=== PATIENT | female | born 1975 | race African-American/Black ===

== ENCOUNTER 2017-05-18 09:35 | Inpatient (IN) | payer BC ==
[2017-05-18] MEDS ORDERED: Acetaminophen 325 MG TAB PO PRN (10:04)
[2017-05-18] MEDS: Acetaminophen 325 MG TAB PO PRN ×2 (10:36→15:39)
[2017-05-18] MEDS ORDERED: Oseltamivir 75 MG CAP PO SCH (10:45)
[2017-05-18] MEDS: Dextrose 5 %-0.45 % NaCl 1,000 ML IV SCH ×2 (11:40→20:45)
--- NOTE | 2017-05-18 11:55 | HP ---
This is CA Diggs-Ryan, dictating for Dr. Jose L Chavarria. REASON FOR ADMISSION: Flu versus pneumonia and hypertension. HISTORY OF PRESENT ILLNESS: This is a pleasant female with a history of hypertension, who was seen i n our clinic where she had a 24-hour history of fever as high as 102, headache and a nonproductive co ugh. She was seen in the office where appeared acutely ill; therefore, she was admitted to the [facility] for further evaluation and treatment. The patient denies any chest, arm or back pain. She also denies any syncopal or near syncopal episodes. She denies having the flu vaccine. PAST MEDICAL HISTORY: 1. Hypertension. 2. Gout. 3. Back pain. 4. She was followed by Dr. Swartz in the past where she had a cardiac catheterization, which was u nremarkable showing no evidence of coronary artery disease. 5. History of arthritis. 6. She does have a family history of coronary artery disease. ALLERGIES: None. MEDICATIONS: 1. Coreg 25 mg b.i.d. 2. Losartan 100 mg every day. 3. Remeron 30 mg at bedtime. 4. Allopurinol 100 mg every day. 5. Norvasc 5 mg every day. FAMILY HISTORY: Noncontributory. SOCIAL HISTORY: She does not drink alcohol. She does smoke. REVIEW OF SYSTEMS: General: Admits to weakness, fatigue, fever, and chills. HEENT: No diplopia, a maurosis fugax, tinnitus, sore throat or hoarseness. Cardiovascular: No chest, arm or back pain. P ulmonary: She does have a cough, but it is not productive in nature. Gastrointestinal: No GI bleed , constipation or diarrhea. Genitourinary: No dysuria, nocturia, oliguria or polyuria. Endocrine: No polyphagia, polydipsia or heat or cold intolerance. Musculoskeletal: Admits to arthralgias. No lupus or myopathy. Neurologic: No history of TIA or seizure. All systems are negative. PHYSICAL EXAMINATION: GENERAL: Pleasant female who appears to be acutely ill. VITAL SIGNS: Her blood pressure is 175/100, pulse 112, respirations 18 and temperature 101.7. HEENT: PERRLA. Sclerae clear, not icteric with no arcus senilis or xanthelasma. NECK: Supple with no increased JVP or carotid bruit. Carotid had good upstroke with no thyromegaly. COR: Tachy rhythm. No murmur, S3. CHEST: Decreased breath sounds. No wheezing or crackles. ABDOMEN: Soft and nontender with normoactive bowel sounds. No bruit or organomegaly. EXTREMITIES: No edema or cyanosis. She had palpable pedal pulses. SKIN: There is no evidence of ulceration, lesion or rash. NEURO: She is awake, alert and oriented to person, place and time. ASSESSMENT: 1. Fluid versus pneumonia. 2. Hypertension. 3. Dehydration. PLAN: 1. The patient will be admitted where CMP, CBC and UA will be obtained. 2. We will do a flu swab and strep swab. 3. We will check a PA and lateral chest x-ray. 4. We will begin IV fluids and give Tylenol p.r.n. for fever as well as clonidine p.r.n. 5. We will resume her blood pressure medication. 6. We will prophylactically start on Tamiflu and antibiotics until further tests. We will have resu lts of her test. The patient verbalized understanding and all questions answered to satisfaction.
[2017-05-18] MEDS: cefTRIAXone\\ROCEPHIN 1 GM, Syringe 0.4 ML in Sterile Water 9.6 ML SLOW IVP SCH (12:19)
[2017-05-18 12:28] LABS: ALT (SGPT) 24 U/L (8-55); AST (SGOT) 25 U/L (5-34); Albumin 3.8 g/dL (3.5-5.0); Alkaline Phosphatase 56 U/L (40-150); Anion Gap 15 mmol/L (10-20); BUN (Urea Nitrogen) 14 mg/dL (7.0-18.7); Bilirubin, Total 0.4 mg/dL (0.2-1.2); Calc. Creatinine Clearance 0 mL/min (70-130); Calcium 8.9 mg/dL (7.8-10.44); Carbon Dioxide 22 mmol/L (22-29); Chloride 104 mmol/L (98-107); Estimated GFR-MDRD 71; Globulin 3.4 g/dL (2.4-3.5); Glucose 133 mg/dL (70-105); Potassium 3.2 mmol/L (3.5-5.1); Protein, Total 7.2 g/dL (6.0-8.3); Sodium 138 mmol/L (136-145)
[2017-05-18 12:49] VITALS: BMI 31.6
[2017-05-18] MEDS ORDERED: Amlodipine 10 MG TAB PO SCH (13:15)
[2017-05-18 13:54] LABS: Hemoglobin 12.7 g/dL (12.0-16.0); Mean Corpuscular HGB CONC 32.5 g/dL (32.0-36.0); Mean Corpuscular Hemoglobin 30.4 pg (27.0-31.0); Mean Corpuscular Volume 93.6 fl (81.0-99.0); Mean Platelet Volume 7.5 fL (7.4-10.4); Platelet Count 224 thou/uL (130-400); RBC Distribution Width 13.3 % (11.5-14.5); Red Blood Cell (RBC) Count 4.18 mill/uL (4.20-5.40); White Blood Cell (WBC) Count 7.8 thou/uL (4.8-10.8)
[2017-05-18 14:05] LABS: Band 17 % (5-11); Lymphocytes 9 % (21-51); MDiff Complete? YES; Monocytes 1 % (0-10); Neutrophil 73 % (42-75); PLT Morphology Comment Appears Adequate; RBC Morphology Normal
--- NOTE | 2017-05-18 14:31 | RAD ---
RADIOGRAPH CHEST 2 VIEWS: Date: 05/18/17 Time: 1415 hours HISTORY: 42-year-old female with cough. COMPARISON: 09/14/11. FINDINGS: Again noted is the mild cardiomegaly. There is a new finding of mixed interstitial and alveolar infil trates, mostly alveolar, throughout the bilateral lower lobes. There is no moderate sized or large pl eural effusion. No pneumothorax. IMPRESSION: 1. Mixed interstitial and alveolar infiltrates, mostly alveolar, in the bilateral lower lobes, proba sherry representing bilateral pneumonia. This is less likely to represent pulmonary edema. 2. Recommend follow-up chest radiograph in 1 week. xin [] POS: Ryan
[2017-05-18] MEDS: cloNIDine 0.1 MG TAB PO PRN ×2 (15:39→17:21)
[2017-05-18] MEDS: Acetaminophen 500 MG TAB PO SCH ×2 (17:16→20:44)
[2017-05-18] MEDS: Ibuprofen 200 MG TAB PO SCH ×2 (17:20→23:50)
[2017-05-18 19:48] LABS: Bilirubin Negative (Negative); Blood, Urine Negative (Negative); Clarity CLOUDY (Clear); Glucose, Urine (Dipstick) Negative (Negative); Leukocyte Negative (Negative); Nitrite Negative (Negative); Protein, Urine (Dipstick) 100 mg/dL (Neg-Trace); Specific Gravity, Urine 1.023 (1.002-1.036); pH, Urine 6.5 (5.0-9.0)
[2017-05-18 19:53] LABS: Bacteria/HPF None Seen HPF (None Seen); Hyaline Casts/LPF 0-3 HYALINE CAST LPF (0-3 Hyaline); RBC/HPF 0-3 HPF (0-3); Squamous Epithelial 0-3 HPF (0-3); WBC/HPF 0-3 HPF (0-3)
[2017-05-18] MEDS: Oseltamivir 75 MG CAP PO SCH (20:43)
[2017-05-18] MEDS: Carvedilol 25 MG TAB PO SCH (20:44)
[2017-05-18] MEDS: Mirtazapine 30 MG TAB PO SCH (20:45)
[2017-05-19] MEDS: Acetaminophen 500 MG TAB PO SCH ×6 (02:14→23:11)
[2017-05-19] MEDS: Ibuprofen 200 MG TAB PO SCH ×4 (06:16→23:47)
[2017-05-19] MEDS: Dextrose 5 %-0.45 % NaCl 1,000 ML IV SCH ×2 (06:22→17:17)
[2017-05-19] MEDS: Carvedilol 25 MG TAB PO SCH ×2 (08:50→20:41)
[2017-05-19] MEDS: Oseltamivir 75 MG CAP PO SCH ×2 (08:50→20:41)
[2017-05-19] MEDS: Amlodipine 10 MG TAB PO SCH (08:50)
[2017-05-19] MEDS: cefTRIAXone\\ROCEPHIN 1 GM, Syringe 0.4 ML in Sterile Water 9.6 ML SLOW IVP SCH (11:31)
[2017-05-19 11:53] LABS: #Eosinphils 0.1 thou/uL (0.0-0.7); #Lymphocytes 0.9 thou/uL (1.20-3.40); #Monocytes 0.2 thou/uL (0.11-0.59); #Neutrophils 2.8 thou/uL (1.40-6.50); %Eosinophils 1.5 % (0.0-10.0); %Lymphocytes 23.1 % (21.0-51.0); %Monocytes 3.8 % (0.0-10.0); %Neutrophils 71.6 % (42.0-75.0); Hemoglobin 11.8 g/dL (12.0-16.0); Mean Corpuscular HGB CONC 32.8 g/dL (32.0-36.0); Mean Corpuscular Hemoglobin 31.3 pg (27.0-31.0); Mean Corpuscular Volume 95.6 fl (81.0-99.0); Mean Platelet Volume 7.5 fL (7.4-10.4); Platelet Count 188 thou/uL (130-400); RBC Distribution Width 13.2 % (11.5-14.5); Red Blood Cell (RBC) Count 3.77 mill/uL (4.20-5.40)
[2017-05-19 12:11] LABS: Anion Gap 11 mmol/L (10-20); BUN (Urea Nitrogen) 13 mg/dL (7.0-18.7); Calc. Creatinine Clearance 124 mL/min (70-130); Calcium 8.5 mg/dL (7.8-10.44); Carbon Dioxide 25 mmol/L (22-29); Chloride 106 mmol/L (98-107); Estimated GFR-MDRD Greater than 90; Glucose 146 mg/dL (70-105); Potassium 3.4 mmol/L (3.5-5.1); Sodium 139 mmol/L (136-145)
[2017-05-19] MEDS ORDERED: HYDROcodone/Acetaminophen 5/325 mg Tablet PO PRN (17:02)
[2017-05-19] MEDS: Benzonatate 100 MG CAP PO PRN ×2 (17:16→23:50)
[2017-05-19] MEDS: Mirtazapine 30 MG TAB PO SCH (20:41)
[2017-05-19] MEDS: guaiFENesin ER 600 MG TAB PO SCH (20:42)
[2017-05-19] MEDS: Cyclobenzaprine 10 MG TAB PO SCH (20:42)
[2017-05-19] MEDS: cloNIDine 0.1 MG TAB PO PRN (20:42)
[2017-05-19] MEDS: Fluticasone Propionate Nasal Spray 16 gm Bottle NASAL SCH (20:43)
[2017-05-20] MEDS: Acetaminophen 500 MG TAB PO SCH ×2 (01:56→05:53)
[2017-05-20] MEDS: Dextrose 5 %-0.45 % NaCl 1,000 ML IV SCH ×3 (01:56→22:44)
[2017-05-20 05:22] LABS: Anion Gap 12 mmol/L (10-20); BUN (Urea Nitrogen) 8 mg/dL (7.0-18.7); Calc. Creatinine Clearance 132 mL/min (70-130); Calcium 8.4 mg/dL (7.8-10.44); Carbon Dioxide 22 mmol/L (22-29); Chloride 108 mmol/L (98-107); Estimated GFR-MDRD Greater than 90; Glucose 146 mg/dL (70-105); Potassium 3.4 mmol/L (3.5-5.1); Sodium 139 mmol/L (136-145)
[2017-05-20] MEDS: Ibuprofen 200 MG TAB PO SCH (05:52)
[2017-05-20] MEDS: Benzonatate 100 MG CAP PO PRN (05:55)
[2017-05-20] MEDS ORDERED: Ibuprofen 600 MG TAB PO PRN (08:28)
[2017-05-20] MEDS: Carvedilol 25 MG TAB PO SCH ×2 (08:45→20:59)
[2017-05-20] MEDS: Cyclobenzaprine 10 MG TAB PO SCH ×2 (08:45→20:59)
[2017-05-20] MEDS: Amlodipine 10 MG TAB PO SCH (08:45)
[2017-05-20] MEDS: Oseltamivir 75 MG CAP PO SCH ×2 (08:46→21:05)
[2017-05-20] MEDS: guaiFENesin ER 600 MG TAB PO SCH ×2 (08:46→20:59)
[2017-05-20] MEDS: Fluticasone Propionate Nasal Spray 16 gm Bottle NASAL SCH ×2 (08:47→21:01)
[2017-05-20] MEDS: Acetaminophen 325 MG TAB PO PRN ×2 (10:05→17:20)
--- NOTE | 2017-05-20 10:15 | RAD ---
CHEST 2 VIEWS: Date: 05/20/17 HISTORY: Pneumonia. COMPARISON: Chest radiographs dated 05/18/17. FINDINGS: Similar appearance to the air space opacities both lower lobes. No pneumothorax. No large effusion. C ardiac silhouette is similar. Mild reverse S-shaped scoliosis of thoracic spine. IMPRESSION: Similar appearance of the air space opacities suggesting pneumonia. POS: [facility]
[2017-05-20] MEDS: cloNIDine 0.1 MG TAB PO PRN (17:20)
[2017-05-20] MEDS: Mirtazapine 30 MG TAB PO SCH (20:59)
[2017-05-21] MEDS: cloNIDine 0.1 MG TAB PO PRN ×2 (05:05→19:56)
[2017-05-21 05:40] LABS: Anion Gap 16 mmol/L (10-20); BUN (Urea Nitrogen) 5 mg/dL (7.0-18.7); Calc. Creatinine Clearance 138 mL/min (70-130); Calcium 8.8 mg/dL (7.8-10.44); Carbon Dioxide 21 mmol/L (22-29); Chloride 106 mmol/L (98-107); Estimated GFR-MDRD Greater than 90; Glucose 138 mg/dL (70-105); Potassium 3.7 mmol/L (3.5-5.1); Sodium 139 mmol/L (136-145)
[2017-05-21 06:05] LABS: Band 1 % (5-11); Hemoglobin 12.8 g/dL (12.0-16.0); Lymphocytes 55 % (21-51); MDiff Complete? YES; Mean Corpuscular HGB CONC 31.8 g/dL (32.0-36.0); Mean Corpuscular Hemoglobin 30.3 pg (27.0-31.0); Mean Corpuscular Volume 95.3 fl (81.0-99.0); Mean Platelet Volume 7.5 fL (7.4-10.4); Monocytes 5 % (0-10); Neutrophil 37 % (42-75); PLT Morphology Comment Appears Adequate; Platelet Count 251 thou/uL (130-400); RBC Distribution Width 13.3 % (11.5-14.5); RBC Morphology Normal; Reactive Lymphocytes 2 % (0-10); Red Blood Cell (RBC) Count 4.22 mill/uL (4.20-5.40); White Blood Cell (WBC) Count 4.5 thou/uL (4.8-10.8)
[2017-05-21] MEDS: Carvedilol 25 MG TAB PO SCH ×2 (08:23→20:06)
[2017-05-21] MEDS: Oseltamivir 75 MG CAP PO SCH ×2 (08:23→20:07)
[2017-05-21] MEDS: Acetaminophen 325 MG TAB PO PRN ×2 (08:23→19:56)
[2017-05-21] MEDS: Amlodipine 10 MG TAB PO SCH (08:23)
[2017-05-21] MEDS: guaiFENesin ER 600 MG TAB PO SCH ×2 (08:23→20:07)
[2017-05-21] MEDS: Cyclobenzaprine 10 MG TAB PO SCH ×2 (08:24→20:06)
[2017-05-21] MEDS: Dextrose 5 %-0.45 % NaCl 1,000 ML IV SCH ×2 (08:24→17:31)
[2017-05-21] MEDS: Fluticasone Propionate Nasal Spray 16 gm Bottle NASAL SCH ×2 (08:27→20:07)
[2017-05-21] MEDS: Benzonatate 100 MG CAP PO PRN (18:30)
[2017-05-21] MEDS: Mirtazapine 30 MG TAB PO SCH (20:07)
[2017-05-22] MEDS: Dextrose 5 %-0.45 % NaCl 1,000 ML IV SCH (02:25)
[2017-05-22] MEDS: Benzonatate 100 MG CAP PO PRN (05:27)
[2017-05-22 05:50] LABS: #Eosinphils 0.1 thou/uL (0.0-0.7); #Lymphocytes 2.6 thou/uL (1.20-3.40); #Monocytes 0.6 thou/uL (0.11-0.59); #Neutrophils 2.5 thou/uL (1.40-6.50); %Basophils 0.8 % (0.0-1.0); %Eosinophils 1.2 % (0.0-10.0); %Lymphocytes 44.8 % (21.0-51.0); %Monocytes 9.7 % (0.0-10.0); %Neutrophils 43.5 % (42.0-75.0); Mean Corpuscular HGB CONC 32.6 g/dL (32.0-36.0); Mean Corpuscular Hemoglobin 30.9 pg (27.0-31.0); Mean Corpuscular Volume 94.7 fl (81.0-99.0); Platelet Count 249 thou/uL (130-400); RBC Distribution Width 13.1 % (11.5-14.5); Red Blood Cell (RBC) Count 3.88 mill/uL (4.20-5.40); White Blood Cell (WBC) Count 5.8 thou/uL (4.8-10.8)
[2017-05-22 06:07] LABS: Anion Gap 11 mmol/L (10-20); BUN (Urea Nitrogen) 5 mg/dL (7.0-18.7); Calc. Creatinine Clearance 141 mL/min (70-130); Calcium 8.9 mg/dL (7.8-10.44); Carbon Dioxide 25 mmol/L (22-29); Chloride 105 mmol/L (98-107); Estimated GFR-MDRD Greater than 90; Glucose 127 mg/dL (70-105); Potassium 3.1 mmol/L (3.5-5.1); Sodium 138 mmol/L (136-145)
[2017-05-22] MEDS: guaiFENesin ER 600 MG TAB PO SCH ×2 (08:24→19:49)
[2017-05-22] MEDS: Amlodipine 10 MG TAB PO SCH (08:25)
[2017-05-22] MEDS: Carvedilol 25 MG TAB PO SCH ×2 (08:25→19:49)
[2017-05-22] MEDS: Fluticasone Propionate Nasal Spray 16 gm Bottle NASAL SCH ×2 (08:25→19:50)
[2017-05-22] MEDS: Cyclobenzaprine 10 MG TAB PO SCH ×2 (08:25→19:49)
[2017-05-22] MEDS: Oseltamivir 75 MG CAP PO SCH ×2 (08:26→19:49)
[2017-05-22] MEDS: Losartan 25 MG TAB PO SCH (10:23)
[2017-05-22] MEDS: Potassium Chloride 20 MEQ TAB PO SCH ×2 (10:23→19:49)
--- NOTE | 2017-05-22 10:37 | PQF ---
CLINICAL DOCUMENTATION IMPROVEMENT CLARIFICATION FORM: ICD-10 Updated PLEASE DO AN ADDENDUM TO THE PROGRESS NOTE WITH ANY DOCUMENTATION UPDATES OR ADDITIONS AND CARRY THROUGH TO DC SUMMARY. THANK YOU. DATE: 05/22 ATTN: DR. NEY CULP Please exercise your independent, professional judgment in responding to the clarification form. Clinical indicators are provided on the bottom of this form for your review. Please check appropriate box(s): [ ] Pneumonia secondary to (specify organism / underlying disease) [ x ] Simple Pneumonia (community acquired - nosocomial) [ ] Bronchopneumonia [ ] Pneumonia of unknown etiology [ x] Other diagnosis _Flu A [ ] Unable to determine For continuity of documentation, please document condition throughout progress notes and discharge summary. Thank You. CLINICAL INDICATORS - SIGNS / SYMPTOMS / LABS H&P DOCUMENTATION 05/18: ASSESSMENT: 1. FLU VS PNEUMONIA PHYSICIAN PN DATED 05/19: BILATERAL PNEUMONIA INFLUENZA A RISK FACTORS: CURRENT TOBACCO USE PNEUMONIA INFLUENZA A TREATMENTS: IV ANTIBIOTIC (ROCEPHIN 05/18 - ) PO ANTIBIOTIC (LEVAQUIN 05/20 - PRESENT) IVF (D5 .45 NS 05/18 - ) 02 SAT MONITORING (05/18 - PRESENT) RESPIRATORY TREATMENTS (DUONEB 05/18 - PRESENT) PO TAMIFLU (05/18 - PRESENT) THANK YOU! Mihaela (This form is maintained as a part of the permanent medical record) 2014 [employer]. All Rights Reserved Mihaela Valverde RN, BSN [email or web address] Office: [phone] [facility]
--- NOTE | 2017-05-22 11:05 | PQF ---
CLINICAL DOCUMENTATION IMPROVEMENT CLARIFICATION FORM: ICD-10 Updated PLEASE DO AN ADDENDUM TO THE PROGRESS NOTE WITH ANY DOCUMENTATION UPDATES OR ADDITIONS AND CARRY THROUGH TO DC SUMMARY. THANK YOU. DATE: 05/22 ATTN: DR. NEY CULP Please exercise your independent, professional judgment in responding to the clarification form. Clinical indicators are provided on the bottom of this form for your review Please check appropriate box(s): [ ] Sepsis due to: (Pna, UTI, gangrenous gall bladder, etc.) [ ] Localized infection without sepsis [ ] Other diagnosis [ x ] Unable to determine For continuity of documentation, please document condition throughout progress notes and discharge summary. Thank You. CLINICAL INDICATORS - SIGNS / SYMPTOMS / LABS [employer] H&P DOCUMENTATION 05/18: ...SEEN IN OUR CLINIC WHERE SHE HAD A 24-HR HISTORY OF FEVER HIGH 102, AMEZCUA & NONPRODUCTIVE COUGH PHYSICAL EXAM: GENERAL: PLEASANT FEMALE WHO APPEARS TO BE ACUTELY ILL. VITAL SIGNS: BP 175/100 NM: 112 T: 101.7 LABS: BANDS 17% (05/18, DAY OF ADMIT) NON-DIABETIC ELEVATED BLOOD GLUCOSE: 133 - 147 ADMISSION VS: T: 102.3 HR: 110 RISK FACTORS: BILATERAL PNEUMONIA INFLUENZA A CURRENT TOBACCO USE TREATMENTS: IV ANTIBIOTICS (ROCEPHIN 05/18 - ) PO ANTIBIOTIC (LEVAQUIN 05/20 - PRESENT) IVF (D5 .45 NS 05/18 - ) THANK YOU! Mihaela (This form is maintained as a part of the permanent medical record) 2014 [employer]. All Rights Reserved Mihaela Valverde RN, BSN [email or web address] Office: [phone] [facility]
[2017-05-22] MEDS: Mirtazapine 30 MG TAB PO SCH (19:49)
[2017-05-23 05:55] LABS: #Basophils 0.1 thou/uL (0.0-0.2); #Eosinphils 0.1 thou/uL (0.0-0.7); #Monocytes 0.6 thou/uL (0.11-0.59); #Neutrophils 2.8 thou/uL (1.40-6.50); %Basophils 1.1 % (0.0-1.0); %Lymphocytes 46.2 % (21.0-51.0); %Neutrophils 42.7 % (42.0-75.0); Hemoglobin 12.8 g/dL (12.0-16.0); Mean Corpuscular HGB CONC 32.8 g/dL (32.0-36.0); Mean Corpuscular Hemoglobin 30.7 pg (27.0-31.0); Mean Corpuscular Volume 93.5 fl (81.0-99.0); Mean Platelet Volume 7.4 fL (7.4-10.4); Platelet Count 285 thou/uL (130-400); Red Blood Cell (RBC) Count 4.18 mill/uL (4.20-5.40); White Blood Cell (WBC) Count 6.6 thou/uL (4.8-10.8)
[2017-05-23 06:07] LABS: ALT (SGPT) 31 U/L (8-55); AST (SGOT) 28 U/L (5-34); Albumin 3.6 g/dL (3.5-5.0); Alkaline Phosphatase 58 U/L (40-150); Anion Gap 11 mmol/L (10-20); BUN (Urea Nitrogen) 8 mg/dL (7.0-18.7); Bilirubin, Total 0.4 mg/dL (0.2-1.2); Calc. Creatinine Clearance 139 mL/min (70-130); Carbon Dioxide 27 mmol/L (22-29); Chloride 105 mmol/L (98-107); Estimated GFR-MDRD Greater than 90; Globulin 3.4 g/dL (2.4-3.5); Glucose 116 mg/dL (70-105); Potassium 3.5 mmol/L (3.5-5.1); Sodium 139 mmol/L (136-145)
--- NOTE | 2017-05-23 08:22 | RAD ---
TWO VIEWS CHEST: Date: 05-23-17 Comparison: 05-12-17 History: Flu versus pneumonia. FINDINGS: No pneumothorax or pleural fluid is seen. There is no focal consolidation or alveolar edema. There is mild linear density in the left lung base, suggesting mild infiltrate or volume loss. When compared to the 05-20-17 exam, aeration within the mid left lung zone and the right lung base has improved. IMPRESSION: Non-streaky opacity noted within the medial left lung base. Aeration within right base and mid left l daniel zone have improved. POS: H
[2017-05-23] MEDS: Losartan 25 MG TAB PO SCH (08:44)
[2017-05-23] MEDS: Cyclobenzaprine 10 MG TAB PO SCH ×2 (08:44→20:04)
[2017-05-23] MEDS: guaiFENesin ER 600 MG TAB PO SCH ×2 (08:44→20:04)
[2017-05-23] MEDS: Potassium Chloride 20 MEQ TAB PO SCH ×2 (08:44→20:04)
[2017-05-23] MEDS: Oseltamivir 75 MG CAP PO SCH ×2 (08:45→20:04)
[2017-05-23] MEDS: Amlodipine 10 MG TAB PO SCH (08:45)
[2017-05-23] MEDS: Carvedilol 25 MG TAB PO SCH ×2 (08:45→20:04)
[2017-05-23] MEDS: Fluticasone Propionate Nasal Spray 16 gm Bottle NASAL SCH ×2 (08:45→20:04)
[2017-05-23] MEDS: Mirtazapine 30 MG TAB PO SCH (20:04)
[2017-05-24 05:11] LABS: #Basophils 0.1 thou/uL (0.0-0.2); #Eosinphils 0.1 thou/uL (0.0-0.7); #Lymphocytes 3.2 thou/uL (1.20-3.40); #Monocytes 0.7 thou/uL (0.11-0.59); #Neutrophils 3.6 thou/uL (1.40-6.50); %Basophils 0.7 % (0.0-1.0); %Eosinophils 1.6 % (0.0-10.0); %Monocytes 8.8 % (0.0-10.0); %Neutrophils 46.9 % (42.0-75.0); Hemoglobin 12.4 g/dL (12.0-16.0); Mean Corpuscular HGB CONC 32.7 g/dL (32.0-36.0); Mean Corpuscular Hemoglobin 30.8 pg (27.0-31.0); Mean Corpuscular Volume 94.2 fl (81.0-99.0); Mean Platelet Volume 7.2 fL (7.4-10.4); Platelet Count 351 thou/uL (130-400); Red Blood Cell (RBC) Count 4.03 mill/uL (4.20-5.40); White Blood Cell (WBC) Count 7.6 thou/uL (4.8-10.8)
[2017-05-24 05:34] LABS: Anion Gap 14 mmol/L (10-20); BUN (Urea Nitrogen) 10 mg/dL (7.0-18.7); Calc. Creatinine Clearance 138 mL/min (70-130); Calcium 9.3 mg/dL (7.8-10.44); Carbon Dioxide 24 mmol/L (22-29); Chloride 104 mmol/L (98-107); Estimated GFR-MDRD Greater than 90; Glucose 126 mg/dL (70-105); Potassium 3.8 mmol/L (3.5-5.1); Sodium 138 mmol/L (136-145)
[2017-05-24] MEDS: Losartan 25 MG TAB PO SCH (07:52)
[2017-05-24] MEDS: Amlodipine 10 MG TAB PO SCH (07:53)
[2017-05-24] MEDS: guaiFENesin ER 600 MG TAB PO SCH (07:53)
[2017-05-24] MEDS: Carvedilol 25 MG TAB PO SCH (07:54)
[2017-05-24] MEDS: Potassium Chloride 20 MEQ TAB PO SCH (07:54)
[2017-05-24] MEDS: Fluticasone Propionate Nasal Spray 16 gm Bottle NASAL SCH (07:55)
[2017-05-24] MEDS: Cyclobenzaprine 10 MG TAB PO SCH (07:58)
[2017-05-24 07:59] VITALS: BP 157/93
[2017-05-24 08:19] VITALS: TEMP 98
--- NOTE | 2017-05-24 11:34 | DIS ---
This is CA Diggs-Ryan, dictating for Jose L Chavarria M.D. FINAL DIAGNOSES: 1. Flu. 2. Pneumonia. 3. Hypertension. 4. Hypokalemia. COMPLICATIONS: None. PROCEDURES: None. CONSULTANTS: None. HOSPITAL COURSE: This is a pleasant female, who was seen in our office with tachycardia, increasing short of breath and elevated temperature. She was admitted to the hospital, where she was found to h ave influenza and also pneumonia. She was started appropriately on Tamiflu, IV fluids, antibiotics a nd also given antipyretic therapy. Her home medication was resumed. Her white blood cell count was normal on admission, on dismissal was stable at 7.6. Her hemoglobin and hematocrit was normal. Her potassium was 3.4, after replenishing it was 3.8. Her BUN and creatinine were normal. Her blood sug ar slightly elevated at 140. Her last chest x-ray showed aeration within the right base and mid left lung zone have improved. The patient began breathing much better. Her antibiotics were changed to by mouth. Her vital signs were stable. She was ready to go home and she was discharged home on 04/2017 in stable condition. DIET: Regular diet. ACTIVITIES: As tolerated by patient. DISCHARGE MEDICATIONS: Included: 1. Cozaar 50 mg every day. 2. Levaquin 500 mg every day. 3. Mucinex 1200 mg b.i.d. 4. Norvasc 10 mg every day. 5. Coreg 25 mg b.i.d. 6. Remeron 30 mg at bedtime. 7. Promethazine with codeine 5 mL b.i.d. p.r.n. FOLLOWUP: She was advised to follow up with Bety in 1 week or prior to that if she has any compl ications. Total time spent with this patient after reviewing the chart and assessing the patient and dictating the discharge summary was 30 minutes.
== END 2017-05-24 10:04 | disposition home or self-care (01) | DRG 195 ==
LOC: 2SW 09:35 → OBSVTOIN 09:35 → T4-B 05-20 11:02
PROVIDERS: ADMIT Specialist; ATTEND Specialist
DX: J10.00 Influenza due to other identified influenza virus with unspecified type of pneumonia (principal); E86.0 Dehydration; E87.6 Hypokalemia; I10 Essential (primary) hypertension
CPT/HCPCS: 36415; 36416; 71046; 80048; 80053; 81001; 85007; 85025; 85027; 87081; 87430; 94640; A4216; J0696; J7620

== ENCOUNTER 2017-10-15 09:53 | Outpatient (CLI) | payer BC | END 2017-10-15 09:54 | disposition home or self-care (01) | LOC: BICRAD 09:53 | PROVIDERS: ATTEND Specialist | DX: M54.9 Dorsalgia, unspecified (principal); M47.896 Other spondylosis, lumbar region | CPT/HCPCS: 72100 ==

== ENCOUNTER 2017-12-26 10:12 | Emergency (ER) | payer BC ==
--- NOTE | 2017-12-26 11:07 | RAD ---
CHEST PA AND LATERAL: History: 42-year-old female with history of cough, sore throat, and chills. Comparison: 05-23-17 FINDINGS: Two views of the chest demonstrate minimal increased linear and interstitial markings in the infrahil ar regions, particularly on the left side. This is stable from the 05-23-17 study. It may well represe nt some chronic change. No confluent pneumonia, overt edema, or pleural effusion. IMPRESSION: Increased vertically oriented linear and parenchymal changes in the left infrahilar region and left r etrocardiac region showing little change from prior study. Correlate clinically. If there is clinical concern for acute pneumonia, consider short term follow up study in several weeks to document cleari ng or stability. POS: [facility]
[2017-12-26] MEDS ORDERED: Ibuprofen 800 MG TAB ONE (12:34)
== END 2017-12-26 12:46 | disposition home or self-care (01) ==
LOC: ERS 10:12
DX: J18.9 Pneumonia, unspecified organism (principal); M10.9 Gout, unspecified; I11.9 Hypertensive heart disease without heart failure; I43 Cardiomyopathy in diseases classified elsewhere; F17.210 Nicotine dependence, cigarettes, uncomplicated; Z79.82 Long term (current) use of aspirin; Z79.899 Other long term (current) drug therapy
CPT/HCPCS: 71046

== ENCOUNTER 2019-07-31 10:04 | Emergency (ER) | payer BC ==
[2019-07-31 11:04] LABS: #Basophils 0.1 thou/uL (0.0-0.2); #Eosinphils 0.2 thou/uL (0.0-0.7); #Lymphocytes 2.9 thou/uL (1.20-3.40); #Monocytes 0.5 thou/uL (0.11-0.59); #Neutrophils 5.6 thou/uL (1.40-6.50); %Basophils 0.7 % (0.0-1.0); %Eosinophils 1.8 % (0.0-10.0); %Lymphocytes 31.6 % (21.0-51.0); %Monocytes 5.4 % (0.0-10.0); %Neutrophils 60.4 % (42.0-75.0); Hemoglobin 13.9 g/dL (12.0-16.0); Mean Corpuscular HGB CONC 33.3 g/dL (32.0-36.0); Mean Corpuscular Hemoglobin 32.1 pg (27.0-31.0); Mean Corpuscular Volume 96.4 fL (78.0-98.0); Mean Platelet Volume 7.8 fL (7.4-10.4); Platelet Count 296 thou/uL (130-400); RBC Distribution Width 14.1 % (11.5-14.5); Red Blood Cell (RBC) Count 4.33 mill/uL (4.20-5.40); White Blood Cell (WBC) Count 9.2 thou/uL (4.8-10.8)
[2019-07-31 11:09] LABS: ALT (SGPT) 23 U/L (8-55); AST (SGOT) 14 U/L (5-34); Albumin 4.1 g/dL (3.5-5.0); Alkaline Phosphatase 63 U/L (40-110); Anion Gap 12 mmol/L (10-20); BUN (Urea Nitrogen) 10 mg/dL (7.0-18.7); Bilirubin, Total 0.3 mg/dL (0.2-1.2); Calc. Creatinine Clearance 0 mL/min (70-130); Calcium 8.8 mg/dL (7.8-10.44); Carbon Dioxide 26 mmol/L (22-29); Chloride 104 mmol/L (98-107); Estimated GFR-MDRD Greater than 90; Globulin 3.3 g/dL (2.4-3.5); Glucose 103 mg/dL (70-105); Potassium 3.7 mmol/L (3.5-5.1); Protein, Total 7.4 g/dL (6.0-8.3); Sodium 138 mmol/L (136-145)
[2019-07-31] MEDS ORDERED: Amoxicillin/Potassium Clav 875 MG TAB ONE (13:25)
[2019-07-31] MEDS ORDERED: Ketorolac Tromethamine 30 MG/ML VIAL ONE (13:25)
[2019-07-31] MEDS ORDERED: hydrALAZINE 20 MG/ML VIAL ONE (13:25)
--- NOTE | 2019-08-01 13:07 | EKG ---
Test Reason : Blood Pressure : / mmHG Vent. Rate : 092 BPM Atrial Rate : 092 BPM P-R Int : 156 ms QRS Dur : 082 ms QT Int : 378 ms P-R-T Axes : 031 006 009 degrees QTc Int : 467 ms Normal sinus rhythm Possible Left atrial enlargement Borderline ECG Confirmed by RONY BRADSHAW DO ([id number]), assignment editor VÍCTOR JUSTIN ([id number]) on 08/01/2019 1:06:34 PM Referred By: Confirmed By:RONY BRADSHAW DO
== END 2019-07-31 14:43 | disposition home or self-care (01) ==
LOC: ERS 10:04
DX: I10 Essential (primary) hypertension (principal); K03.81 Cracked tooth; M10.9 Gout, unspecified; F17.210 Nicotine dependence, cigarettes, uncomplicated; Z79.899 Other long term (current) drug therapy; Z79.891 Long term (current) use of opiate analgesic
CPT/HCPCS: 80053; 84484; 85025; 93005; 96374; 96375; J0360; J1885

== ENCOUNTER 2019-10-16 12:36 | Inpatient (IN) | payer BC ==
[2019-10-16 13:57] LABS: #Basophils 0.1 thou/uL (0.0-0.2); #Eosinphils 0.1 thou/uL (0.0-0.7); #Lymphocytes 2.5 thou/uL (1.20-3.40); #Monocytes 0.5 thou/uL (0.11-0.59); #Neutrophils 6.2 thou/uL (1.40-6.50); %Basophils 0.7 % (0.0-1.0); %Eosinophils 1.4 % (0.0-10.0); %Lymphocytes 26.8 % (21.0-51.0); %Monocytes 5.2 % (0.0-10.0); %Neutrophils 65.9 % (42.0-75.0); Hemoglobin 13.7 g/dL (12.0-16.0); Mean Corpuscular HGB CONC 33.9 g/dL (32.0-36.0); Mean Corpuscular Volume 97.3 fL (78.0-98.0); Mean Platelet Volume 7.9 fL (7.4-10.4); Platelet Count 305 thou/uL (130-400); RBC Distribution Width 14.4 % (11.5-14.5); Red Blood Cell (RBC) Count 4.15 mill/uL (4.20-5.40); White Blood Cell (WBC) Count 9.5 thou/uL (4.8-10.8)
[2019-10-16 14:20] LABS: ALT (SGPT) 30 U/L (8-55); AST (SGOT) 19 U/L (5-34); Albumin 4.2 g/dL (3.5-5.0); Alkaline Phosphatase 67 U/L (40-110); Anion Gap 15 mmol/L (10-20); BUN (Urea Nitrogen) 9 mg/dL (7.0-18.7); Bilirubin, Total 0.3 mg/dL (0.2-1.2); Calc. Creatinine Clearance 0 mL/min (70-130); Calcium 9.5 mg/dL (7.8-10.44); Carbon Dioxide 24 mmol/L (22-29); Chloride 104 mmol/L (98-107); Estimated GFR-MDRD 45; Globulin 3.1 g/dL (2.4-3.5); Glucose 108 mg/dL (70-105); Lipase 16 U/L (8-78); Magnesium 1.9 mg/dL (1.6-2.6); Potassium 4.3 mmol/L (3.5-5.1); Protein, Total 7.3 g/dL (6.0-8.3); Sodium 139 mmol/L (136-145)
[2019-10-16] MEDS ORDERED: Labetalol HCl 100 MG/20 ML VIAL ONE (14:25)
--- NOTE | 2019-10-16 14:26 | RAD ---
PORTABLE CHEST: 10/16/19 INDICATIONS: Chest pain. COMPARISON: 12/26/17. FINDINGS: Lungs appear clear of infiltrate. Heart size upper normal but stable. Vasculature is within normal ra nge. IMPRESSION: No acute process identified. POS: [facility]
[2019-10-16] MEDS ORDERED: niCARdipine 20MG In NaCl 20 MG/200 ML BAG ONE ×2 (15:32→20:22)
--- NOTE | 2019-10-16 15:57 | PDOC.FPRHP ---
- History of Present Illness Chief Complaint: High BP History of Present Illness: 44yo female with pmh of HTN and gout presents after she was found to have elevated BP at a work physical. Reports asymptomatic until in the ED when she experienced a AMEZCUA that has now resolved. Her biggest concern is her leg pain related to gout. Denies chest pain, SOB, changes in vision. - Allergies/Adverse Reactions Allergies Allergy/AdvReac Type Severity Reaction Status Date / Time No Known Allergies Allergy Verified 07/11/19 12:32 - Home Medications Medication Instructions Recorded Confirmed Type Allopurinol [Zyloprim] 100 mg PO DAILY 05/18/17 05/18/17 History Amlodipine [Norvasc] 10 mg PO DAILY 05/18/17 05/24/17 History Carvedilol [Coreg] 25 mg PO BID 05/18/17 05/18/17 History Losartan Potassium [Cozaar] 50 mg PO DAILY 05/18/17 05/24/17 History Mirtazapine [Remeron] 30 mg PO HS 05/18/17 05/18/17 History Acetaminophen [Tylenol] 325 mg PO Q4HR PRN 05/24/17 05/24/17 History Cyclobenzaprine [Flexeril] 10 mg PO BID 05/24/17 05/24/17 History Fluticasone Propionate [Flonase 2 spray EA NARE BID 05/24/17 05/24/17 History Nasal [place]] Levofloxacin [Levaquin] 500 mg PO DAILY 05/24/17 05/24/17 History Promethazine HCl/Codeine 5 ml PO BID PRN 05/24/17 05/24/17 History [Prometh-Codein 6.25-10 mg/5 ml] guaiFENesin [Mucinex] 1,200 mg PO Q12HR 05/24/17 05/24/17 History - History PMHx: Hx of Bradycardia, HTN, Gout PSHx: FHx: Social: Current smoker- smokes - Vital signs BP: 177/118 HR: 101 RR: 21 Tmax: [] Pox: 95% on RA Wt: [] - Physical Exam Constitutional: NAD, awake, alert and oriented, well developed HEENT: normocephalic and atraumatic, conjunctiva clear, no scleral icterus, grossly normal hearing, MMM, oropharynx clear Neck: supple, trachea midline Heart: RRR, no murmurs/rubs/gallops, no edema Lungs: CTAB, no respiratory distress Abdomen: soft, non-tender Neurological: no focal deficit Skin: good turgor Heme/Lymphatic: no unusual bruising or bleeding Psychiatric: normal mood and affect, good judgment and insight, intact recent and remote memory FMR H&P: Results - Labs Result Diagrams: 10/16/19 12:52 10/16/19 12:52 Lab results: WBC 9.5 thou/uL (4.8-10.8) 10/16/19 12:52 Hgb 13.7 g/dL (12.0-16.0) 10/16/19 12:52 Hct 40.4 % (36.0-47.0) 10/16/19 12:52 MCV 97.3 fL (78.0-98.0) 10/16/19 12:52 Plt Count 305 thou/uL (130-400) 10/16/19 12:52 Neutrophils % 65.9 % (42.0-75.0) 10/16/19 12:52 Sodium 139 mmol/L (136-145) 10/16/19 12:52 Potassium 4.3 mmol/L (3.5-5.1) 10/16/19 12:52 Chloride 104 mmol/L (98-107) 10/16/19 12:52 Carbon Dioxide 24 mmol/L (22-29) 10/16/19 12:52 BUN 9 mg/dL (7.0-18.7) 10/16/19 12:52 Creatinine 1.50 mg/dL (0.6-1.1) H 10/16/19 12:52 Glucose 108 mg/dL (70-105) H 10/16/19 12:52 Calcium 9.5 mg/dL (7.8-10.44) 10/16/19 12:52 Total Bilirubin 0.3 mg/dL (0.2-1.2) 10/16/19 12:52 AST 19 U/L (5-34) 10/16/19 12:52 ALT 30 U/L (8-55) 10/16/19 12:52 Alkaline Phosphatase 67 U/L (40-110) 10/16/19 12:52 B-Natriuretic Peptide 434.4 pg/mL (0-100) H 10/16/19 12:52 Serum Total Protein 7.3 g/dL (6.0-8.3) 10/16/19 12:52 Albumin 4.2 g/dL (3.5-5.0) 10/16/19 12:52 Lipase 16 U/L (8-78) 10/16/19 12:52 FMR H&P: Upper Level - Plan Date/Time: 10/16/19 1556 I, [], have evaluated this patient and agree with findings/plan as outlined by application support intern resident. Pertinent changes/additions are listed here.
--- NOTE | 2019-10-16 17:13 | PDOC.HHP ---
Hospitalist HPI - History of Present Illness high blood pressure History of Present Illness: 44yo F w/ MHx of HTN and gout presents for high blood pressure. Went to PCP to get work physical and was found to have grossly elevated blood pressure so was sent to the ED. Endorses being adherent to her BP medications (losartan and coreg) but despite that, having poorly controlled blood pressure considering her medications havent been modified that much over the past 15 years. on encounter, laying comfortably in bed and complains of mild frontal headache that is typical of the headache she has when blood pressure is high. Denies fatigue, change in vision, chest pain, palpitations, dyspnea, abdominal pain, hematuria, focal weakness. ED Course: In the ED, was started on nicardipine and admitted to the IMCU for further management Hospitalist ROS - Review of Systems All other systems reviewed; all pertinent +/- noted in HPI/Subj Hospitalist History - Past Medical History Source: patient Cardiac: reports: HTN. denies: CAD, CHF, HI Pulmonary: denies: angina, CVA/TIA/stroke, COPD, heart attack - Past Surgical History Past Surgical History: reports: no pertinent history - Family History Family History: reports: diabetes mellitus, hypertension Other Family History: hepatitis c (mother) - Social History Smoking Status: Current every day smoker Tobacco Type: cigarettes Alcohol: reports: Rare Drugs: reports: marijuana Living Situation: With Family Activity level: independent ambulation - Exam General Appearance: NAD, awake alert Eye: PERRL ENT: moist mucosa Neck: no JVD Heart: RRR, no murmur, no gallops, no rubs Respiratory: CTAB, no wheezes, no ronchi Respiratory - other findings: bibasilar rales Gastrointestinal: soft, non-tender, non-distended Extremities: no edema Psychiatric: normal affect, normal behavior, A&O x 3 Hospitalist Results - Labs Result Diagrams: 10/16/19 12:52 10/16/19 12:52 Lab results: WBC 9.5 thou/uL (4.8-10.8) 10/16/19 12:52 Hgb 13.7 g/dL (12.0-16.0) 10/16/19 12:52 Hct 40.4 % (36.0-47.0) 10/16/19 12:52 MCV 97.3 fL (78.0-98.0) 10/16/19 12:52 Plt Count 305 thou/uL (130-400) 10/16/19 12:52 Neutrophils % 65.9 % (42.0-75.0) 10/16/19 12:52 Sodium 139 mmol/L (136-145) 10/16/19 12:52 Potassium 4.3 mmol/L (3.5-5.1) 10/16/19 12:52 Chloride 104 mmol/L (98-107) 10/16/19 12:52 Carbon Dioxide 24 mmol/L (22-29) 10/16/19 12:52 BUN 9 mg/dL (7.0-18.7) 10/16/19 12:52 Creatinine 1.50 mg/dL (0.6-1.1) H 10/16/19 12:52 Glucose 108 mg/dL (70-105) H 10/16/19 12:52 Calcium 9.5 mg/dL (7.8-10.44) 10/16/19 12:52 Total Bilirubin 0.3 mg/dL (0.2-1.2) 10/16/19 12:52 AST 19 U/L (5-34) 10/16/19 12:52 ALT 30 U/L (8-55) 10/16/19 12:52 Alkaline Phosphatase 67 U/L (40-110) 10/16/19 12:52 Troponin I 0.020 ng/mL (< 0.028) 10/16/19 12:52 B-Natriuretic Peptide 434.4 pg/mL (0-100) H 10/16/19 12:52 Serum Total Protein 7.3 g/dL (6.0-8.3) 10/16/19 12:52 Albumin 4.2 g/dL (3.5-5.0) 10/16/19 12:52 Lipase 16 U/L (8-78) 10/16/19 12:52 - EKG Interpretation EKG: EKG showing sinus tachy with criteria for LVH; no signs of acute ischemia - Radiology Interpretation Chest x-ray Status: image reviewed by me (no acute cardiopulmonary process) Hospitalist H&P A/P - Problem (1) Hypertensive emergency Code(s): I16.1 - HYPERTENSIVE EMERGENCY Status: Acute (2) Gout Code(s): M10.9 - GOUT, UNSPECIFIED Status: Acute - Plan Plan: #hypertensive emergency #hypervolemia #LESLIE -continue cardene; goal within next 8 hours ~ 180/100 -will start on IVP antihtn initially for easy titration to wean off cardene -once LESLIE resolves, will transition to losartan, chlorthalidone #Gout -reconcile home medications disposition/PPx full code. is surrogate gi PPx: no Ix DVT PPx: lovenox
[2019-10-16] MEDS ORDERED: niCARdipine 25 MG in Sodium Chloride 0.9% 250 ML 250 ML IVPB PRN (17:51)
[2019-10-16] MEDS ORDERED: Acetaminophen 325 MG TAB PO PRN (17:51)
[2019-10-16] MEDS ORDERED: Insulin Regular 300 UNITS/3 ML VIAL SC PRN (17:51)
[2019-10-16] MEDS ORDERED: Ondansetron PF 4 MG/2 ML Vial IVP PRN (17:51)
[2019-10-16] MEDS ORDERED: Senokot S 8.6-50 MG TAB PO PRN (17:51)
[2019-10-16] MEDS ORDERED: Ondansetron ODT 4 MG TAB PO PRN (17:51)
[2019-10-16] MEDS ORDERED: Acetaminophen 325 MG TAB ONE (18:39)
[2019-10-16] MEDS ORDERED: Fluticasone Propionate Nasal Spray 16 gm Bottle NASAL SCH (21:00)
[2019-10-16] MEDS ORDERED: Labetalol HCl 100 MG/20 ML VIAL SLOW IVP PRN (21:14)
[2019-10-16] MEDS ORDERED: hydrALAZINE 20 MG/ML VIAL SLOW IVP SCH (21:15)
[2019-10-16] MEDS ORDERED: hydrALAZINE 20 MG/ML VIAL ONE (21:17)
[2019-10-16] MEDS ORDERED: Amlodipine 5 MG TAB ONE (21:17)
[2019-10-16] MEDS ORDERED: Cyclobenzaprine 10 MG TAB ONE (21:31)
[2019-10-17 00:02] VITALS: BMI 32.5
[2019-10-17] MEDS: Cyclobenzaprine 10 MG TAB PO SCH ×2 (00:17→10:04)
[2019-10-17] MEDS: Amlodipine 5 MG TAB PO SCH ×2 (00:17→10:05)
[2019-10-17] MEDS ORDERED: hydrALAZINE 20 MG/ML VIAL SLOW IVP PRN (00:30)
[2019-10-17] MEDS ORDERED: niCARdipine 25 MG in Sodium Chloride 0.9% 250 ML 240 ML IVPB SCH (03:45)
[2019-10-17] MEDS ORDERED: Fioricet 325/50/40 mg Tablet PO PRN (04:11)
[2019-10-17] MEDS ORDERED: cloNIDine 0.2 MG TAB PO SCH (04:15)
[2019-10-17 04:32] LABS: Anion Gap 18 mmol/L (10-20); BUN (Urea Nitrogen) 8 mg/dL (7.0-18.7); Calc. Creatinine Clearance 127 mL/min (70-130); Calcium 9.5 mg/dL (7.8-10.44); Carbon Dioxide 23 mmol/L (22-29); Chloride 101 mmol/L (98-107); Estimated GFR-MDRD 90; Glucose 140 mg/dL (70-105); Potassium 3.5 mmol/L (3.5-5.1); Sodium 138 mmol/L (136-145)
[2019-10-17] MEDS ORDERED: Losartan 25 MG TAB PO SCH (09:00)
[2019-10-17] MEDS ORDERED: Allopurinol 100 MG TAB PO SCH (09:00)
[2019-10-17] MEDS ORDERED: Chlorthalidone 25 MG TAB PO SCH (09:00)
[2019-10-17] MEDS ORDERED: Enoxaparin Sodium 30 MG/0.3 ML SYRINGE SC SCH (09:00)
--- NOTE | 2019-10-17 09:49 | CON ---
DATE OF CONSULTATION: HISTORY OF PRESENT ILLNESS: Medhat Chavarria is a 44-year-old morbidly obese, female, who presented to the ER with uncontrolled hypertension. She had not taken her usual home medication, apparently took only some, she went for physical. She was brought to the ICU by the time she got here. She had a good blood pressure, did not require any IV medication. She has a previous hospitalization here before. PAST MEDICAL HISTORY: Pertinent for hypertension, arthritis, gout, apparently she has a cardiomyopathy, 25% EF. PREVIOUS SURGERIES: Neck surgery. SOCIAL HISTORY: Smokes a half pack a day. Drinks. No substance abuse. HOME MEDICATIONS: Include: 1. Guaifenesin. 2. Remeron 30. 3. Cozaar 100. 4. Flonase. 5. Coreg 25 b.i.d. 6. Tylenol. 7. Flexeril 10. 8. Allopurinol. REVIEW OF SYSTEMS: Otherwise, unremarkable. PHYSICAL EXAMINATION: GENERAL: She is awake, alert, and responsive. VITAL SIGNS: Blood pressure has stabilized 134/80, pulse 80, respirations 18, and saturation is 100%. CHEST: No wheezing. No crackles. CARDIAC: Normal S1, S2. No gallops. ABDOMEN: No masses. LABORATORY DATA: Creatinine which is 1.5 this morning, is normal. BNP slightly elevated at 434. X-ray shows cardiomegaly, but I do not see any obvious infiltrates, maybe some haziness because of obesity. CBC is unremarkable. White count 9000, H and H 10 and 40. ASSESSMENT: 1. Uncontrolled hypertension. 2. Apparently, history of cardiomyopathy. I do not see an echo report. 3. Obesity, depression. PLAN: Blood pressure was well controlled. She can probably be transferred out of the ICU. Pulmonary/Critical Care will follow while in the ICU. Consultation note, 70 minutes, 50% direct patient care. Job ID: [id number]
[2019-10-17 10:06] VITALS: BP 161/113
[2019-10-17] MEDS ORDERED: Acetaminophen 325 MG TAB PO PRN (10:26)
[2019-10-17 13:02] VITALS: TEMP 97.6
[2019-10-17] MEDS ORDERED: Mirtazapine 30 MG TAB PO SCH (21:00)
--- NOTE | 2019-10-18 01:40 | DIS ---
DATE OF ADMISSION: 10/16/2019 DATE OF DISCHARGE: 10/17/2019 HOSPITAL COURSE: Ms. Chavarria is a 44-year-old female with medical history of hypertension and gout, who presented for high blood pressure. She went to her primary care physician to get a work physical and was found to have grossly elevated blood pressure. She was diagnosed with hypertensive emergency, resulting in acute kidney injury. The patient was started on IV Cardene and goal blood pressure was achieved after which oral medications were started and blood pressure was well controlled. She was discharged home hemodynamically stable with primary care physician followup to assess medication efficiency and check electrolytes. PHYSICAL EXAMINATION: VITAL SIGNS: Blood pressure 160/96, respiratory rate 14, and oxygen saturation 96% on room air. GENERAL: Lying comfortably in bed. No apparent distress. Obese. EYES: PERRL. EOMI. HENT: No JVD. CARDIAC: Regular rate and rhythm. No murmurs, gallops, or rubs. LUNGS: Clear to auscultation bilaterally. No wheezing, rales, or rhonchi. ABDOMEN: Nontender, nondistended. Normal bowel sounds. EXTREMITIES: Mild pitting edema to ankle level, per the patient is chronic. PSYCHIATRIC: Proper mood and affect. Alert and oriented x3. MEDICATION LIST: New medications, chlorthalidone 25 mg p.o. daily. Modified medications, no modified medications. Continued medications, 1. Coreg 25 mg b.i.d. 2. Losartan 100 mg daily. 3. Promethazine p.r.n. 4. Guaifenesin p.r.n. 5. Rosuvastatin. 6. Mirtazapine. 7. Fluticasone nasal. 8. Cyclobenzaprine. 9. Allopurinol. 10. Acetaminophen p.r.n. Job ID: [id number]
[2019-10-18] MEDS ORDERED: Losartan 25 MG TAB PO SCH (09:00)
[2019-10-18] MEDS ORDERED: Rosuvastatin 5 MG TAB PO SCH (09:00)
== END 2019-10-17 13:30 | disposition home or self-care (01) | DRG 305 ==
LOC: ERS 12:36 → 2NO 23:53 → CCU 10-17 05:36
PROVIDERS: ADMIT Internal Medicine; ATTEND Internal Medicine
DX: I16.1 Hypertensive emergency (principal); N17.9 Acute kidney failure, unspecified; I42.9 Cardiomyopathy, unspecified; I10 Essential (primary) hypertension; M10.9 Gout, unspecified; E11.9 Type 2 diabetes mellitus without complications; F17.210 Nicotine dependence, cigarettes, uncomplicated; F32.9 Major depressive disorder, single episode, unspecified; E87.70 Fluid overload, unspecified; E66.01 Morbid (severe) obesity due to excess calories; Z79.899 Other long term (current) drug therapy; Z68.32 Body mass index [BMI] 32.0-32.9, adult
CPT/HCPCS: 36415; 71045; 80048; 80053; 83690; 83735; 83880; 84484; 85025; 93005; 93306; 94760; 96365; 96366; 96375; 96376; J0360; J1650

== ENCOUNTER 2019-12-31 10:12 | Emergency (ER) | payer BC ==
[2019-12-31] MEDS ORDERED: HYDROcodone/Acetaminophen 7.5/325 mg Tablet ONE (10:49)
[2019-12-31] MEDS ORDERED: Cyclobenzaprine 10 MG TAB ONE (10:50)
== END 2019-12-31 11:10 | disposition home or self-care (01) ==
LOC: ERS 10:12
DX: S29.012A Strain of muscle and tendon of back wall of thorax, initial encounter (principal); M10.9 Gout, unspecified; I10 Essential (primary) hypertension; F41.9 Anxiety disorder, unspecified; F17.210 Nicotine dependence, cigarettes, uncomplicated; Z79.899 Other long term (current) drug therapy; X58.XXXA Exposure to other specified factors, initial encounter
CPT/HCPCS: 99283

== ENCOUNTER 2020-05-18 18:09 | Emergency (ER) | payer BC ==
[2020-05-18] MEDS ORDERED: Dexamethasone 4 mg/ml Vial ONE (20:29)
--- NOTE | 2020-05-18 20:34 | RAD ---
ONE VIEW CHEST: 05/18/20 HISTORY: Dyspnea. COMPARISON: 10/15/12. FINDINGS: Normal cardiac silhouette. The pulmonary vessels and hilum are normal. Costophrenic angles are clear. No mass. No consolidation. No pneumothorax or acute osseous abnormalities. IMPRESSION: No acute cardiopulmonary process. POS: PPP
[2020-05-19 05:21] LABS: SARS-CoV-2 PCR by NAA Not Detected (NotDetected)
== END 2020-05-18 21:05 | disposition home or self-care (01) ==
LOC: ERS 18:09
DX: J30.9 Allergic rhinitis, unspecified (principal); I10 Essential (primary) hypertension; I42.9 Cardiomyopathy, unspecified; M10.9 Gout, unspecified; Z20.822 Contact with and (suspected) exposure to COVID-19; F17.210 Nicotine dependence, cigarettes, uncomplicated; Z79.899 Other long term (current) drug therapy
CPT/HCPCS: 71045; 87635; 96372; J1100; U0003; U0005

== ENCOUNTER 2020-06-19 13:13 | Inpatient (IN) | payer BC ==
[2020-06-19 14:42] LABS: #Eosinphils 0.1 thou/uL (0.0-0.7); #Monocytes 0.6 thou/uL (0.11-0.59); #Neutrophils 6.3 thou/uL (1.40-6.50); %Basophils 0.2 % (0.0-1.0); %Eosinophils 0.8 % (0.0-10.0); %Lymphocytes 22.2 % (21.0-51.0); %Monocytes 6.9 % (0.0-10.0); %Neutrophils 69.8 % (42.0-75.0); Hemoglobin 12.2 g/dL (12.0-16.0); Mean Corpuscular Hemoglobin 30.9 pg (27.0-31.0); Mean Corpuscular Volume 93.9 fL (78.0-98.0); Mean Platelet Volume 8.4 fL (7.4-10.4); Platelet Count 276 thou/uL (130-400); RBC Distribution Width 12.7 % (11.5-14.5); Red Blood Cell (RBC) Count 3.93 mill/uL (4.20-5.40)
[2020-06-19 14:52] LABS: Bacteria/HPF None Seen HPF (None Seen); Bilirubin Negative (Negative); Blood, Urine 2+ (Negative); Clarity Clear (Clear); Glucose, Urine (Dipstick) Greater than 1000 mg/dL (Negative); Ketone, Urine Negative (Negative); Leukocyte 75 Leu/uL (Negative); Nitrite Negative (Negative); Protein, Urine (Dipstick) Negative (Neg-Trace); RBC/HPF Greater than 50 HPF (0-3); Specific Gravity, Urine 1.027 (1.002-1.036); Squamous Epithelial 0-3 HPF (0-3); Urobilinogen Normal mg/dL (Less than 2); pH, Urine 5.5 (5.0-9.0)
[2020-06-19 14:53] LABS: Pregnancy Test - Urine (BHCG) Negative (Negative); Pregu Control Background? CLEAR/WHITE (CLR/WHITE); Pregu Control Bar Appear? YES (CONTROL BAR); Specific Gravity 1.027 (1.002-1.036)
[2020-06-19 15:02] LABS: ALT (SGPT) 17 U/L (8-55); AST (SGOT) 11 U/L (5-34); Albumin 4.2 g/dL (3.5-5.0); Alkaline Phosphatase 125 U/L (40-110); Anion Gap 20 mmol/L (10-20); BUN (Urea Nitrogen) 35 mg/dL (7.0-18.7); Bilirubin, Total 0.3 mg/dL (0.2-1.2); Calc. Creatinine Clearance 0 mL/min (70-130); Calcium 9.3 mg/dL (7.8-10.44); Carbon Dioxide 20 mmol/L (22-29); Chloride 82 mmol/L (98-107); Globulin 3.7 g/dL (2.4-3.5); Lipase 130 U/L (8-78); Potassium 5.7 mmol/L (3.5-5.1); Protein, Total 7.9 g/dL (6.0-8.3)
[2020-06-19 15:11] LABS: Glucose 1039 mg/dL (70-105); Sodium 116 mmol/L (136-145)
[2020-06-19] MEDS ORDERED: Insulin Regular 300 UNITS/3 ML VIAL ONE (15:27)
[2020-06-19] MEDS ORDERED: Dextrose 5% in Water 1,000 ML IV PRN (15:31)
[2020-06-19] MEDS ORDERED: Dextrose 50% Abboject 50 ML SYRINGE SLOW IVP PRN (15:31)
[2020-06-19 15:52] LABS: Hemoglobin A1c 13.7 % (4.0-6.0)
[2020-06-19 15:54] LABS: Magnesium 2.5 mg/dL (1.6-2.6); Phosphorus 5.3 mg/dL (2.3-4.7)
[2020-06-19] MEDS ORDERED: Senokot S 8.6-50 MG TAB PO PRN (16:17)
[2020-06-19] MEDS ORDERED: Acetaminophen 325 MG TAB PO PRN (16:17)
[2020-06-19] MEDS ORDERED: GUAIFENESIN SF SOLN 200 MG/10 ML UDCUP PO PRN (16:21)
[2020-06-19] MEDS ORDERED: Pantoprazole 40 MG VIAL IVP SCH (16:30)
--- NOTE | 2020-06-19 17:36 | HP ---
PCP: Dr. Burk. CHIEF COMPLAINT: Weakness with numbness, tingling in arms and legs with vision changes since Sunday. HISTORY OF PRESENT ILLNESS: Ms. Chavarria is a 45-year-old female, who came to the emergency room today for the chief complaint of generalized weakness, numbness, tingling in both hands and legs, weakness bilateral lower legs, which are intermittent. She reports that she was diagnosed with a sinus infection several weeks ago, finished her antibiotics, but started the steroid pack on Sunday after she began having recurrent symptoms. She reports that she was on a dose pack and completed at least the 1st row she believes. She reports she was at work, started having intermittent numbness and tingling to her bilateral hands. She reports that resolved. She also had the same sensation to bilateral legs and generalized weakness. She was evaluated in the emergency room, was found to have glucose over a 1000. Creatinine was elevated at 2.21, sodium at 116, potassium at 5.7, chloride is 82, lactic acid 2.7. Her UA was positive for leukocytes, white blood cell, but no bacteria. CBC is generally unremarkable. A red blood cell count was 3.93. She has past medical history pertinent for hypertension, gout. Really at one time, she may have had a cardiomyopathy, but on the last echocardiogram done in September of 2019, she had an EF of 55% to 60%. She reports that she has not taken her blood pressure medications today and her blood pressure has been normotensive while in the emergency room. In the emergency room, she was given 2 L of normal saline and 20 units of regular insulin and then will be admitted to the hospitalist for further management. REVIEW OF SYSTEMS: The patient reports bilateral arm and leg weakness, numbness, tingling, which is intermittent. Reports that she has a mild cough and is productive, although she reports that has a lot better. She reports some discomfort when she swallows for the last couple of days and some blurry vision in her left eye. She does report having increased urinary frequency. She denies having a history of diabetes. She denies any unilateral weakness. All systems are negative and reviewed unless mentioned above or in the HPI. ALLERGIES: NONE. CURRENT MEDICATIONS: 1. Allopurinol 300 mg p.o. once a day. 2. Mirtazapine 30 mg p.o. once a day. 3. Crestor 10 mg p.o. once a day. 4. Flexeril 10 mg p.o. q.8 hours p.r.n. 5. Losartan 100 mg p.o. once a day. 6. Coreg 25 mg p.o. b.i.d. 7. Albuterol inhaler two puffs q.4 hours as needed. 8. Hydralazine 25 mg t.i.d. 9. Prozac 20 mg p.o. once a day. PHYSICAL EXAMINATION: VITAL SIGNS: Blood pressure 126/98, pulse is 102, respiratory rate is 18, temperature is 97.7, pO2 sats are 97% on room air. CONSTITUTIONAL: The patient is nontoxic appearing. She is in no apparent distress. She is alert and oriented to person, place, and time. HEENT: Head is atraumatic and normocephalic. Eyes; pupils equal, round, and reactive to light. Extraocular muscles are intact. ENT; mouth exam is normal. Mucous membranes are moist. NECK: Normal range of motion. Trachea is midline. RESPIRATORY: Breath sounds are clear. Chest expansion is equal. CARDIOVASCULAR: She is tachycardic. Regular rhythm. Heart sounds are normal. ABDOMEN: Nontender. Bowel sounds are heard. BACK: Normal range of motion. No tenderness. EXTREMITIES: Upper extremity, normal range of motion. Motor strength is normal. Lower extremity, normal inspection. Normal range of motion. Pedal pulses are normal. NEURO: The patient is oriented to person, place, and time. Speech is normal. SKIN: Warm, dry, normal in color. SURGICAL HISTORY: Had surgery to her right leg. PSYCHIATRIC HISTORY: Anxiety. SOCIAL HISTORY: She smokes 6 to 7 cigarettes per day. Drinks socially. Lives at home with her family. Denies any drug use. PLAN AND ASSESSMENT: 1. Hyperglycemia in a context of starting a week of steroids. We did check an A1c and that was over 12, which strongly indicates new onset type 2 diabetes. She does have a family history of diabetes in her family. We will continue the normal saline 100 mL per hour. Sliding scale insulin as needed for coverage. Recheck CMP at 7 o'clock this evening. We will keep her on a consistent carb diet. 2. She has a sodium of 116, but when adjusted for the glucose, it is closer to normal range. Potassium is 5.7, chloride 82. I will recheck her BMP at 1900 this evening. 3. Acute kidney injury. Today, her creatinine is 2.21. We checked last in September of 2019 and it was 0.83. IV hydration. We will recheck values at 1900 today. 4. History of hypertension. We will restart her home medications once reconciled. 5. History of gout. We will restart her allopurinol. 6. History of anxiety. We will restart her fluoxetine. 7. We have added some Protonix daily and Carafate for the acid reflux feeling that she has experienced over the last couple of days. 8. SCDs for DVT prevention. 9. Case discussed with Dr. Tejeda, who agrees with the plan. Job ID: [id number]
[2020-06-19 18:26] LABS: Lactic Acid 3.6 mmol/L (0.5-2.2)
[2020-06-19 19:13] LABS: Anion Gap 18 mmol/L (10-20); BUN (Urea Nitrogen) 33 mg/dL (7.0-18.7); Calc. Creatinine Clearance 46 mL/min (70-130); Calcium 8.7 mg/dL (7.8-10.44); Carbon Dioxide 20 mmol/L (22-29); Chloride 91 mmol/L (98-107); Potassium 4.8 mmol/L (3.5-5.1); Sodium 124 mmol/L (136-145)
[2020-06-19] MEDS: Sucralfate 1 GM TAB PO SCH (19:17)
[2020-06-19] MEDS: Sodium Chloride 0.9% 1,000 ML IV SCH (19:17)
[2020-06-19 19:18] LABS: Glucose 909 mg/dL (70-105)
[2020-06-19] MEDS ORDERED: NPH, Human Insulin Isophane 300 UNIT/3 ML VIAL SC SCH (21:00)
[2020-06-20] MEDS: Sucralfate 1 GM TAB PO SCH ×5 (00:03→20:29)
[2020-06-20] MEDS: Sodium Chloride 0.9% 1,000 ML IV SCH ×3 (00:03→17:04)
[2020-06-20] MEDS: Insulin Regular 300 UNITS/3 ML VIAL SC PRN ×4 (00:04→20:29)
[2020-06-20] MEDS ORDERED: Cyclobenzaprine 10 MG TAB PO PRN (08:07)
[2020-06-20] MEDS ORDERED: Calcium Carbonate 500 MG ChewTAB PO PRN (08:08)
[2020-06-20] MEDS ORDERED: Cepastat Lozenges 1 LOZ PO PRN (08:08)
[2020-06-20] MEDS ORDERED: HYDROcodone/Acetaminophen 5/325 mg Tablet PO PRN (08:08)
[2020-06-20] MEDS ORDERED: Sodium Chloride 0.65% Nasal 44 ML BOT EA NARE PRN (08:08)
[2020-06-20] MEDS ORDERED: Loperamide HCl 2 MG CAP PO PRN (08:08)
[2020-06-20] MEDS ORDERED: Ondansetron ODT 4 MG TAB PO PRN (08:08)
[2020-06-20] MEDS ORDERED: hydrALAZINE 20 MG/ML VIAL SLOW IVP PRN (08:08)
[2020-06-20] MEDS ORDERED: Zolpidem Tartrate 5 MG TAB PO PRN (08:08)
[2020-06-20] MEDS ORDERED: Ondansetron PF 4 MG/2 ML Vial IVP PRN (08:08)
[2020-06-20] MEDS ORDERED: Loratadine 10 MG TAB PO PRN (08:08)
[2020-06-20] MEDS ORDERED: Albuterol Sulfate 2.5 mg/3 ml Neb NEB PRN (08:24)
[2020-06-20] MEDS ORDERED: FLU VACC QS2020-21(6MOS UP)/PF 60 MCG/0.5 ML SYRINGE IM ONE (09:00)
[2020-06-20 09:39] LABS: Glucose 312 mg/dL (70-105)
[2020-06-20] MEDS: FLUoxetine HCl 20 MG CAP PO SCH (09:48)
[2020-06-20] MEDS: Allopurinol 300 MG TAB PO SCH (09:48)
[2020-06-20] MEDS: Rosuvastatin 10 MG TAB PO SCH (09:48)
[2020-06-20] MEDS: NPH, Human Insulin Isophane 300 UNIT/3 ML VIAL SC SCH ×2 (09:49→20:30)
[2020-06-20] MEDS: Heparin 5,000 UNITS/ML VIAL SC SCH ×2 (09:49→20:29)
--- NOTE | 2020-06-20 11:23 | PDOC.HOSPP ---
- Subjective Encounter Date: 06/20/20 Encounter Time: 08:50 Subjective: Patient seen and examined. No new complaints. No overnight events - Objective Vital Signs & Weight: Vital Signs (12 hours) Temp Pulse Resp BP Pulse Ox 06/20/20 08:00 98.8 F 106 H 16 127/87 97 06/20/20 04:00 98.1 F 96 20 119/75 96 Weight Weight 191 lb 5.78 oz I&O: 06/19/20 06/20/20 06/21/20 06:59 06:59 06:59 Intake Total 970 Balance 970 Result Diagrams: 06/19/20 14:04 06/20/20 09:15 Additional Labs: Accuchecks 06/20/20 04:03 POC Glucose 389 H Hospitalist ROS - Review of Systems Constitutional: reports: weakness. denies: fever, chills, sweats, malaise, other Respiratory: denies: cough, dry, shortness of breath, hemoptysis, SOB with excertion, pleuritic pain, sputum, wheezing, other Cardiovascular: denies: chest pain, palpitations, orthopnea, paroxysmal noc. dyspnea, edema, light headedness, other Gastrointestinal: denies: nausea, vomiting, abdominal pain, diarrhea, constipation, melena, hematochezia, other Genitourinary: denies: dysuria, frequency, incontinence, hematuria, retention, other Musculoskeletal: denies: neck pain, shoulder pain, arm pain, back pain, hand pain, leg pain, foot pain, other - Medication Medications: Active Medications Generic Name Dose Route Start Last Admin Trade Name Freq PRN Reason Stop Dose Admin Allopurinol 300 mg 06/20/20 09:00 06/20/20 09:48 Allopurinol 300 Mg Tab PO 300 mg DAILY CORNELIO Administration Fluoxetine HCl 20 mg 06/20/20 09:00 06/20/20 09:48 Fluoxetine Hcl 20 Mg Cap PO 20 mg DAILY CORNELIO Administration Heparin Sodium (Porcine) 5,000 units 06/20/20 09:00 06/20/20 09:49 Heparin 5,000 Units/Ml Vial SC 5,000 units Q12HR CORNELIO Administration Sodium Chloride 1,000 mls @ 125 mls/hr 06/19/20 16:30 06/20/20 09:50 Normal Saline 0.9% IV 1,000 mls .Q8H CORNELIO Administration Insulin Human NPH 15 unit 06/20/20 09:00 06/20/20 09:49 Nph, Human Insulin Isophane 300 Unit/3 Ml Vial SC 15 unit BID CORNELIO Administration Insulin Human Regular 0 units 06/19/20 15:31 06/20/20 06:08 Insulin Regular 300 Units/3 Ml Vial SC 10 unit .MODERATE SLIDING SC PRN Administration Moderate Correctional Scale Insulin Human Regular 0 units 06/19/20 15:31 06/20/20 00:04 Insulin Regular 300 Units/3 Ml Vial SC 5 unit .BEDTIME SLIDING SC PRN Administration Bedtime Correctional Scale Pantoprazole Sodium 40 mg 06/20/20 09:00 06/20/20 09:48 Pantoprazole 40 Mg Tab PO 40 mg DAILY CORNELIO Administration Rosuvastatin Calcium 10 mg 06/20/20 09:00 06/20/20 09:48 Rosuvastatin 10 Mg Tab PO 10 mg DAILY CORNELIO Administration Sucralfate 1 gm 06/19/20 17:00 06/20/20 09:48 Sucralfate 1 Gm Tab PO 1 gm ACHS CORNELIO Administration Hospitalist Exam Vitals: Vital Signs (12 hours) Temp Pulse Resp BP Pulse Ox 06/20/20 08:00 98.8 F 106 H 16 127/87 97 06/20/20 04:00 98.1 F 96 20 119/75 96 Weight Weight 191 lb 5.78 oz General Appearance: NAD, awake alert Eye: PERRL, anicteric sclera ENT: normocephalic atraumatic, no oropharyngeal lesions Neck: supple, symmetric, no JVD, no thyromegaly Heart: RRR, no murmur, no gallops, no rubs Respiratory: no wheezes, no rales, no ronchi Gastrointestinal: soft, non-tender, non-distended, normal bowel sounds Extremities: no cyanosis, no clubbing, no edema Skin: normal turgor, no lesions Neurological: no focal deficits Musculoskeletal: normal tone, normal strength Psychiatric: normal affect, normal behavior Hosp A/P (1) Acute kidney failure Status: Acute (2) Severe hyperglycemia due to diabetes mellitus Code(s): E11.65 - TYPE 2 DIABETES MELLITUS WITH HYPERGLYCEMIA Status: Acute (3) Hyponatremia Code(s): E87.1 - HYPO-OSMOLALITY AND HYPONATREMIA Status: Acute (4) Gout Code(s): M10.9 - GOUT, UNSPECIFIED Status: Chronic (5) Obesity (BMI 30-39.9) Code(s): E66.9 - OBESITY, UNSPECIFIED Status: Chronic (6) Anxiety and depression Code(s): F41.9 - ANXIETY DISORDER, UNSPECIFIED; F32.9 - MAJOR DEPRESSIVE DISORDER, SINGLE EPISODE, UNSPECIFIED Status: Chronic (7) GERD (gastroesophageal reflux disease) Code(s): K21.9 - GASTRO-ESOPHAGEAL REFLUX DISEASE WITHOUT ESOPHAGITIS Status: Chronic (8) Dyslipidemia Code(s): E78.5 - HYPERLIPIDEMIA, UNSPECIFIED Status: Chronic (9) Lactic acidosis Code(s): E87.2 - ACIDOSIS Status: Acute - Plan old records reviewed/req Renal function has not improved, continue IV fluid We will start NPH insulin 15 units subcu twice daily Consult dietitian for diabetes education and diet education We will repeat labs tomorrow Medication reviewed and continue provide symptomatic and supportive care
[2020-06-20] MEDS: Fluticasone Propionate Nasal Spray 16 gm Bottle NASAL SCH (11:34)
[2020-06-20 12:37] LABS: Glucose 457 mg/dL (70-105)
[2020-06-21] MEDS: Insulin Regular 300 UNITS/3 ML VIAL SC PRN ×5 (00:28→17:01)
[2020-06-21] MEDS: Sodium Chloride 0.9% 1,000 ML IV SCH (00:55)
[2020-06-21 05:11] LABS: ALT (SGPT) 14 U/L (8-55); AST (SGOT) 18 U/L (5-34); Alkaline Phosphatase 75 U/L (40-110); Anion Gap 17 mmol/L (10-20); BUN (Urea Nitrogen) 16 mg/dL (7.0-18.7); Bilirubin, Total Less than 0.2 mg/dL (0.2-1.2); Calc. Creatinine Clearance 99 mL/min (70-130); Calcium 7.6 mg/dL (7.8-10.44); Carbon Dioxide 14 mmol/L (22-29); Chloride 106 mmol/L (98-107); Globulin 3.5 g/dL (2.4-3.5); Glucose 255 mg/dL (70-105); Magnesium 1.9 mg/dL (1.6-2.6); Phosphorus 1.6 mg/dL (2.3-4.7); Potassium 3.8 mmol/L (3.5-5.1); Protein, Total 6.5 g/dL (6.0-8.3); Sodium 133 mmol/L (136-145)
[2020-06-21 05:12] LABS: #Basophils 0.1 thou/uL (0.0-0.2); #Eosinphils 0.2 thou/uL (0.0-0.7); #Lymphocytes 4.1 thou/uL (1.20-3.40); #Monocytes 0.6 thou/uL (0.11-0.59); #Neutrophils 4.6 thou/uL (1.40-6.50); %Eosinophils 1.9 % (0.0-10.0); %Lymphocytes 43.1 % (21.0-51.0); %Monocytes 6.1 % (0.0-10.0); %Neutrophils 47.9 % (42.0-75.0); Hemoglobin 9.9 g/dL (12.0-16.0); Mean Corpuscular HGB CONC 35.3 g/dL (32.0-36.0); Mean Corpuscular Hemoglobin 31.6 pg (27.0-31.0); Mean Corpuscular Volume 89.6 fL (78.0-98.0); Mean Platelet Volume 7.9 fL (7.4-10.4); Platelet Count 230 thou/uL (130-400); RBC Distribution Width 12.3 % (11.5-14.5); Red Blood Cell (RBC) Count 3.13 mill/uL (4.20-5.40); White Blood Cell (WBC) Count 9.6 thou/uL (4.8-10.8)
[2020-06-21] MEDS ORDERED: Electrolyte Replacement Protocol 1 EACH FS PRN (05:40)
[2020-06-21] MEDS ORDERED: Magnesium 2 GM/50 ML 2 GM in Premix Bag 1 BAG IVPB SCH (06:00)
[2020-06-21] MEDS: PHOS-NAK 1 PKT PACK PO SCH ×2 (06:36→08:50)
[2020-06-21] MEDS ORDERED: Potassium Phosphate 15 MMOL in Sodium Chloride 0.9% 250 ML 250 ML IVPB SCH (08:15)
[2020-06-21] MEDS: Sucralfate 1 GM TAB PO SCH ×3 (08:30→17:10)
[2020-06-21] MEDS: NPH, Human Insulin Isophane 300 UNIT/3 ML VIAL SC SCH (08:32)
[2020-06-21] MEDS: Heparin 5,000 UNITS/ML VIAL SC SCH (08:36)
[2020-06-21] MEDS: FLUoxetine HCl 20 MG CAP PO SCH (08:41)
[2020-06-21] MEDS: Allopurinol 300 MG TAB PO SCH (08:42)
[2020-06-21] MEDS: Fluticasone Propionate Nasal Spray 16 gm Bottle NASAL SCH (08:43)
[2020-06-21] MEDS: Rosuvastatin 10 MG TAB PO SCH (08:43)
[2020-06-21] MEDS ORDERED: Losartan 25 MG TAB PO SCH (09:00)
[2020-06-21] MEDS ORDERED: hydrALAZINE 25 MG TAB PO SCH (09:00)
[2020-06-21] MEDS ORDERED: Carvedilol 25 MG TAB PO SCH (09:00)
[2020-06-21 12:39] VITALS: BMI 30.9
--- NOTE | 2020-06-21 12:59 | PDOC.DS.DS ---
Provider Date of Admission: 06/19/20 15:37 Date of Discharge: 06/21/20 Admitting Provider: Nikhil Mathis MD Primary Care Physician: CACHORRO BURK JR, MD Course Hospital Course: Patient was admitted on June 19, 2020, on admission patient blood sugar was very high, she had a pseudohyponatremia, patient was hydrated with IV fluid, her abnormal electrolytes was replaced and corrected, we restarted insulin therapy, we provided diabetes education, dietitian was consulted, we restarted all her previous home medication, patient education given to continue insulin as well as we added Metformin on discharge, patient is instructed to make appointment with her primary care physician within a week, at that time her primary care physician based on her blood sugar record they will increase or decrease the medication. Patient expressed understanding. Lab Results: 06/21/20 04:24 06/21/20 04:24 Abnormal Lab Results - Last 48 hrs 06/19/20 14:04: Sodium 116 L*, Potassium 5.7 H, Chloride 82 L, Carbon Dioxide 20 L, BUN 35 H, Creatinine 2.21 H, Alkaline Phosphatase 125 H, Globulin 3.7 H, Albumin/Globulin Ratio 1.1 L, Lipase 130 H 06/19/20 14:04: Lactic Acid 2.5 H 06/19/20 14:04: RBC 3.93 L, Monocytes # 0.6 H 06/19/20 14:04: Phosphorus 5.3 H 06/19/20 14:04: Hemoglobin A1c 13.7 H 06/19/20 14:17: Urine Glucose (UA) Greater than 1000 A, Urine Blood 2+ A, Ur Leukocyte Esterase 75 A, Urine RBC Greater than 50 A, Urine WBC 7-10 A 06/19/20 17:38: Lactic Acid 3.6 H 06/19/20 18:47: Sodium 124 L, Chloride 91 L, Carbon Dioxide 20 L, BUN 33 H, Creatinine 2.09 H 06/21/20 04:24: Sodium 133 L, Carbon Dioxide 14 L, Calcium 7.6 L, Phosphorus 1.6 L, Total Bilirubin Less than 0.2 L, Albumin 3.0 L, Albumin/Globulin Ratio 0.9 L 06/21/20 04:24: RBC 3.13 L, Hgb 9.9 L, Hct 28.0 L, MCH 31.6 H, Lymphocytes # 4.1 H, Monocytes # 0.6 H Microbiology - Entire Visit 06/20/20 15:15 Urine voided Urine Culture - Preliminary NO GROWTH AT 24 HOURS Vitals: Vital Signs (12 hours) Temp Pulse Resp BP BP Pulse Ox 06/21/20 10:55 97.8 F 95 14 126/80 100 06/21/20 07:00 98.6 F 102 H 19 160/95 H 100 06/21/20 03:35 98.5 F 99 16 163/93 H 99 Weight Admit Weight 191 lb 5.78 oz Weight 197 lb 3.2 oz Physical Exam: The patient was seen and examined on the day of discharge. General Appearance: NAD, awake alert Eye: PERRL, anicteric sclera ENT: normocephalic atraumatic, no oropharyngeal lesions Neck: supple, symmetric, no JVD, no thyromegaly Respiratory: CTAB, no wheezes, no rales, no ronchi Cardiovascular: RRR, no murmur, no gallops, no rubs Gastrointestinal: soft, non-tender, non-distended, normal bowel sounds Extremities: no cyanosis, no clubbing, no edema Skin: normal turgor, no lesions Neurological: no focal deficits Musculoskeletal: normal tone, normal strength PSYCH: normal affect, normal behavior Problem (1) Acute kidney failure Status: Acute (2) Severe hyperglycemia due to diabetes mellitus Code(s): E11.65 - TYPE 2 DIABETES MELLITUS WITH HYPERGLYCEMIA Status: Acute (3) Hyponatremia Code(s): E87.1 - HYPO-OSMOLALITY AND HYPONATREMIA Status: Acute (4) Gout Code(s): M10.9 - GOUT, UNSPECIFIED Status: Chronic (5) Obesity (BMI 30-39.9) Code(s): E66.9 - OBESITY, UNSPECIFIED Status: Chronic (6) Anxiety and depression Code(s): F41.9 - ANXIETY DISORDER, UNSPECIFIED; F32.9 - MAJOR DEPRESSIVE DISORDER, SINGLE EPISODE, UNSPECIFIED Status: Chronic (7) GERD (gastroesophageal reflux disease) Code(s): K21.9 - GASTRO-ESOPHAGEAL REFLUX DISEASE WITHOUT ESOPHAGITIS Status: Chronic (8) Dyslipidemia Code(s): E78.5 - HYPERLIPIDEMIA, UNSPECIFIED Status: Chronic (9) Lactic acidosis Code(s): E87.2 - ACIDOSIS Status: Acute Plan Prescriptions: NPH, Human Insulin Isophane [HumuLIN N] 15 unit SC BID #1 vial metFORMIN HCl 1,000 mg PO BID-WM #60 tab Home Medications: Medication Instructions Recorded Confirmed Type Allopurinol [Zyloprim] 300 mg PO DAILY 05/18/17 06/19/20 History Carvedilol [Coreg] 50 mg PO BID 05/18/17 06/19/20 History Mirtazapine [Remeron] 30 mg PO HS PRN 05/18/17 06/19/20 History Cyclobenzaprine [Flexeril] 10 mg PO Q8H PRN 05/24/17 06/19/20 History Fluticasone Propionate [Flonase 2 spray EA NARE BID 05/24/17 06/19/20 History Nasal [place]] Losartan [Cozaar] 100 mg PO DAILY 10/16/19 06/19/20 History Rosuvastatin [Crestor] 2 tab PO DAILY 10/16/19 06/19/20 History Albuterol Sulfate [Albuterol 2 inh IH Q4H PRN 06/19/20 06/19/20 History Sulfate Hfa] FLUoxetine HCl 20 mg PO DAILY 06/19/20 06/19/20 History hydrALAZINE [Apresoline] 25 mg PO TID 06/19/20 06/19/20 History NPH, Human Insulin Isophane 15 unit SC BID #1 vial 06/21/20 Rx [HumuLIN N] metFORMIN HCl 1,000 mg PO BID-WM #60 tab 06/21/20 Rx Allergies: No Known Allergies Allergy (Verified 06/19/20 20:05) Activity:: Activity as Tolerated Nourishment:: Diabetic Diet Therapies:: Not Applicable Equipment/Supplies:: Not Applicable IV Therapy:: Not Applicable Referrals: Cachorro Burk Jr, MD [Primary Care Provider] - Disposition: HOME Quality CORE MEASURES:: N/A
[2020-06-21 15:47] VITALS: BP 144/89; TEMP 98.2
== END 2020-06-21 17:40 | disposition home or self-care (01) | DRG 638 ==
LOC: ERS 13:13 → 2NO 15:37
PROVIDERS: ADMIT Internal Medicine; ATTEND Internal Medicine
DX: E11.65 Type 2 diabetes mellitus with hyperglycemia (principal); N17.9 Acute kidney failure, unspecified; E87.1 Hypo-osmolality and hyponatremia; E87.2 Acidosis; I10 Essential (primary) hypertension; M10.9 Gout, unspecified; F41.9 Anxiety disorder, unspecified; F17.210 Nicotine dependence, cigarettes, uncomplicated; E87.5 Hyperkalemia; E86.0 Dehydration; T38.0X5A Adverse effect of glucocorticoids and synthetic analogues, initial encounter; F32.9 Major depressive disorder, single episode, unspecified; K21.9 Gastro-esophageal reflux disease without esophagitis; E78.5 Hyperlipidemia, unspecified; E66.9 Obesity, unspecified; Z68.30 Body mass index [BMI] 30.0-30.9, adult
CPT/HCPCS: 36415; 36416; 80053; 81003; 81015; 81025; 82010; 82947; 83036; 83605; 83690; 83735; 84100; 84443; 84484; 85025; 87086; 93005; C9113; J1644; J1815; J3475; J7050

== ENCOUNTER 2021-07-26 19:47 | Emergency (ER) | payer BC ==
[2021-07-26 20:53] LABS: #Basophils 0.1 thou/uL (0.0-0.2); #Eosinphils 0.2 thou/uL (0.0-0.7); #Monocytes 0.6 thou/uL (0.11-0.59); #Neutrophils 5.1 thou/uL (1.40-6.50); %Basophils 0.9 % (0.0-1.0); %Eosinophils 2.1 % (0.0-10.0); %Lymphocytes 33.2 % (21.0-51.0); %Monocytes 6.5 % (0.0-10.0); %Neutrophils 57.4 % (42.0-75.0); Hemoglobin 11.2 g/dL (12.0-16.0); Mean Corpuscular HGB CONC 31.9 g/dL (32.0-36.0); Mean Corpuscular Hemoglobin 31.2 pg (27.0-31.0); Mean Corpuscular Volume 97.8 fL (78.0-98.0); Mean Platelet Volume 6.7 fL (7.4-10.4); Platelet Count 340 thou/uL (130-400); RBC Distribution Width 13.4 % (11.5-14.5); Red Blood Cell (RBC) Count 3.58 mill/uL (4.20-5.40); White Blood Cell (WBC) Count 8.9 thou/uL (4.8-10.8)
[2021-07-26 21:14] LABS: ALT (SGPT) 25 U/L (8-55); AST (SGOT) 18 U/L (5-34); Albumin 4.2 g/dL (3.5-5.0); Alkaline Phosphatase 66 U/L (40-110); Anion Gap 14 mmol/L (10-20); BUN (Urea Nitrogen) 20 mg/dL (7.0-18.7); Bilirubin, Total Less than 0.2 mg/dL (0.2-1.2); Calc. Creatinine Clearance 0 mL/min (70-130); Carbon Dioxide 23 mmol/L (22-29); Chloride 107 mmol/L (98-107); Globulin 3.4 g/dL (2.4-3.5); Glucose 89 mg/dL (70-105); Lipase 32 U/L (8-78); Potassium 4.2 mmol/L (3.5-5.1); Protein, Total 7.6 g/dL (6.0-8.3); Sodium 140 mmol/L (136-145)
[2021-07-26 21:26] LABS: Pregs Control Background? CLEAR/WHITE (CLR/WHITE); Pregs Control Bar Appear? YES (CONTROL BAR)
[2021-07-26 21:32] LABS: BHCG - Serum Negative (NEGATIVE)
[2021-07-26] MEDS ORDERED: Acetaminophen 500 MG TAB ONE (21:41)
[2021-07-26] MEDS ORDERED: Ketorolac Tromethamine 30 MG/ML VIAL ONE (22:19)
== END 2021-07-26 22:23 | disposition home or self-care (01) ==
LOC: ERS 19:47
DX: M94.0 Chondrocostal junction syndrome [Tietze] (principal); I10 Essential (primary) hypertension; M10.9 Gout, unspecified; F17.210 Nicotine dependence, cigarettes, uncomplicated
CPT/HCPCS: 36415; 80053; 83690; 84703; 85025; 96372; 99284; J1885

== ENCOUNTER 2021-08-19 09:00 | Outpatient (CLI) | payer BC | END 2021-08-19 09:01 | disposition home or self-care (01) | LOC: BICMAMMO 09:00 | PROVIDERS: ATTEND Family Medicine | DX: Z12.31 Encounter for screening mammogram for malignant neoplasm of breast (principal) | CPT/HCPCS: 77063; 77067 ==

== ENCOUNTER 2022-05-12 09:14 | Inpatient (IN) | payer BC, SELFPAY ==
[2022-05-12] MEDS ORDERED: Metoclopramide HCl 10 MG/2 ML VIAL ONE (10:34)
[2022-05-12] MEDS ORDERED: diphenhydrAMINE 50 MG/ML VIAL ONE (10:34)
[2022-05-12 10:55] LABS: #Eosinphils 0.1 thou/uL (0.0-0.7); #Lymphocytes 2.2 thou/uL (1.20-3.40); #Monocytes 0.4 thou/uL (0.11-0.59); #Neutrophils 5.4 thou/uL (1.40-6.50); %Basophils 0.2 % (0.0-1.0); %Eosinophils 1.5 % (0.0-10.0); %Lymphocytes 27.3 % (21.0-51.0); %Monocytes 5.2 % (0.0-10.0); %Neutrophils 65.8 % (42.0-75.0); Hemoglobin 11.3 g/dL (12.0-16.0); Mean Corpuscular HGB CONC 32.6 g/dL (32.0-36.0); Mean Platelet Volume 7.2 fL (7.4-10.4); Platelet Count 329 10x3/uL (130-400); RBC Distribution Width 13.8 % (11.5-14.5); Red Blood Cell (RBC) Count 3.65 mill/uL (4.20-5.40); White Blood Cell (WBC) Count 8.1 10x3/uL (4.8-10.8)
[2022-05-12 11:09] LABS: BHCG - Serum Negative (NEGATIVE); Pregs Control Background? CLEAR/WHITE (CLR/WHITE); Pregs Control Bar Appear? YES (CONTROL BAR)
[2022-05-12] MEDS ORDERED: Fentanyl 100 MCG/2 ML VIAL ONE (11:20)
[2022-05-12] MEDS ORDERED: Labetalol HCl 100 MG/20 ML VIAL SLOW IVP PRN (12:02)
[2022-05-12] MEDS ORDERED: hydrALAZINE 20 MG/ML VIAL SLOW IVP PRN (12:02)
[2022-05-12 12:05] LABS: Albumin 3.8 g/dL (3.5-5.0)
[2022-05-12 12:06] LABS: Chloride 109 mmol/L (98-107); Potassium 4.2 mmol/L (3.5-5.1); Sodium 138 mmol/L (136-145)
[2022-05-12 12:07] LABS: Calcium 8.8 mg/dL (7.8-10.44); Glucose 102 mg/dL (70-105)
[2022-05-12 12:08] LABS: Globulin 3.4 g/dL (2.4-3.5); Protein, Total 7.2 g/dL (6.0-8.3)
[2022-05-12 12:08] LABS: INR-International Normal Ratio 0.9; PTT 30.3 sec (22.9-36.1); Prothrombin Time 12.6 sec (12.0-14.7)
[2022-05-12 12:09] LABS: Anion Gap 14 mmol/L (10-20); Bilirubin, Total Less than 0.2 mg/dL (0.2-1.2); Carbon Dioxide 19 mmol/L (22-29)
[2022-05-12 12:10] LABS: Alkaline Phosphatase 65 U/L (40-110)
[2022-05-12 12:11] LABS: BUN (Urea Nitrogen) 21 mg/dL (7.0-18.7); Calc. Creatinine Clearance 0 mL/min (70-130); Estimated GFR 61
[2022-05-12 12:12] LABS: AST (SGOT) 13 U/L (5-34)
[2022-05-12 12:13] LABS: ALT (SGPT) 16 U/L (8-55)
[2022-05-12] MEDS ORDERED: Ondansetron ODT 4 MG TAB PO PRN (12:58)
[2022-05-12] MEDS ORDERED: Ondansetron PF 4 MG/2 ML Vial IVP PRN (12:58)
[2022-05-12] MEDS ORDERED: Acetaminophen/Codeine 30-300mg Tablet PO PRN (13:01)
[2022-05-12] MEDS ORDERED: Mirtazapine 30 MG TAB PO PRN (13:01)
[2022-05-12] MEDS ORDERED: Dextrose 50% Abboject 50 ML SYRINGE SLOW IVP PRN (13:01)
[2022-05-12] MEDS ORDERED: Dextrose 5% in Water 1,000 ML IV PRN (13:01)
[2022-05-12] MEDS ORDERED: HumaLOG 300 UNITS/3 ML VIAL SC PRN (13:01)
[2022-05-12] MEDS ORDERED: Cyclobenzaprine 10 MG TAB PO PRN (13:01)
[2022-05-12] MEDS ORDERED: Nicotine 14 MG PATCH ONE (14:06)
[2022-05-12] MEDS ORDERED: hydrALAZINE 25 MG TAB ONE (14:06)
[2022-05-12] MEDS: Nicotine 14 MG PATCH TD SCH (14:14)
[2022-05-12] MEDS: hydrALAZINE 25 MG TAB PO SCH ×2 (14:14→21:54)
[2022-05-12] MEDS ORDERED: HYDROcodone/Acetaminophen 5/325 mg Tablet ONE (14:16)
[2022-05-12] MEDS: HYDROcodone/Acetaminophen 5/325 mg Tablet PO PRN ×2 (14:20→21:55)
[2022-05-12 15:31] LABS: SARS-CoV-2 NAA Rapid Test Not Detected (NotDetected)
[2022-05-12] MEDS: Carvedilol 25 MG TAB PO SCH (21:54)
[2022-05-12] MEDS: Rosuvastatin 10 MG TAB PO SCH (21:55)
[2022-05-12] MEDS: Famotidine 20 MG TAB PO SCH (21:56)
[2022-05-12] MEDS: Fluticasone Propionate Nasal Spray 16 gm Bottle NASAL SCH (22:32)
[2022-05-12] MEDS: Acetaminophen 325 MG TAB PO PRN (23:39)
[2022-05-13 01:55] VITALS: BMI 32.1
[2022-05-13] MEDS: HYDROcodone/Acetaminophen 5/325 mg Tablet PO PRN (03:31)
[2022-05-13 05:04] LABS: #Eosinphils 0.1 thou/uL (0.0-0.7); #Lymphocytes 2.3 thou/uL (1.20-3.40); #Monocytes 0.5 thou/uL (0.11-0.59); #Neutrophils 5.8 thou/uL (1.40-6.50); %Basophils 0.3 % (0.0-1.0); %Eosinophils 1.1 % (0.0-10.0); %Lymphocytes 26.1 % (21.0-51.0); %Monocytes 5.8 % (0.0-10.0); %Neutrophils 66.7 % (42.0-75.0); Hemoglobin 10.9 g/dL (12.0-16.0); Mean Corpuscular HGB CONC 31.1 g/dL (32.0-36.0); Mean Corpuscular Hemoglobin 30.4 pg (27.0-31.0); Mean Platelet Volume 6.8 fL (7.4-10.4); Platelet Count 332 10x3/uL (130-400); RBC Distribution Width 13.6 % (11.5-14.5); Red Blood Cell (RBC) Count 3.58 mill/uL (4.20-5.40); White Blood Cell (WBC) Count 8.7 10x3/uL (4.8-10.8)
[2022-05-13 05:31] LABS: Anion Gap 14 mmol/L (10-20); BUN (Urea Nitrogen) 17 mg/dL (7.0-18.7); Calc. Creatinine Clearance 102 mL/min (70-130); Calcium 9.2 mg/dL (7.8-10.44); Carbon Dioxide 19 mmol/L (22-29); Chloride 105 mmol/L (98-107); Estimated GFR 73; Glucose 153 mg/dL (70-105); Potassium 4.2 mmol/L (3.5-5.1); Sodium 134 mmol/L (136-145)
[2022-05-13] MEDS: hydrALAZINE 25 MG TAB PO SCH ×3 (08:30→20:53)
[2022-05-13] MEDS: Famotidine 20 MG TAB PO SCH ×2 (08:30→20:53)
[2022-05-13] MEDS: Carvedilol 25 MG TAB PO SCH ×2 (08:30→20:53)
[2022-05-13] MEDS: Fluticasone Propionate Nasal Spray 16 gm Bottle NASAL SCH ×2 (08:30→20:53)
[2022-05-13] MEDS: Allopurinol 100 MG TAB PO SCH (08:31)
[2022-05-13] MEDS: Acetaminophen 325 MG TAB PO PRN ×2 (08:31→16:12)
[2022-05-13] MEDS: Nicotine 14 MG PATCH TD SCH (08:32)
[2022-05-13] MEDS: FLUoxetine HCl 20 MG CAP PO SCH (08:32)
[2022-05-13] MEDS: Losartan 25 MG TAB PO SCH (08:32)
[2022-05-13] MEDS: HumaLOG 300 UNITS/3 ML VIAL SC PRN (13:39)
[2022-05-13] MEDS ORDERED: Morphine 2 MG/ML VIAL SLOW IVP PRN (17:56)
[2022-05-13] MEDS ORDERED: HYDROcodone/Acetaminophen 5/325 mg Tablet PO PRN (19:37)
[2022-05-13] MEDS: Rosuvastatin 10 MG TAB PO SCH (20:53)
[2022-05-14 05:39] LABS: #Eosinphils 0.1 thou/uL (0.0-0.7); #Lymphocytes 2.4 thou/uL (1.20-3.40); #Monocytes 0.6 thou/uL (0.11-0.59); #Neutrophils 4.9 thou/uL (1.40-6.50); %Basophils 0.4 % (0.0-1.0); %Eosinophils 1.2 % (0.0-10.0); %Lymphocytes 30.4 % (21.0-51.0); Hemoglobin 11.6 g/dL (12.0-16.0); Mean Corpuscular HGB CONC 32.9 g/dL (32.0-36.0); Mean Corpuscular Hemoglobin 31.5 pg (27.0-31.0); Mean Corpuscular Volume 95.6 fl (78.0-98.0); Mean Platelet Volume 6.8 fL (7.4-10.4); Platelet Count 351 10x3/uL (130-400); RBC Distribution Width 13.5 % (11.5-14.5); Red Blood Cell (RBC) Count 3.68 mill/uL (4.20-5.40)
[2022-05-14 06:00] LABS: Anion Gap 14 mmol/L (10-20); BUN (Urea Nitrogen) 18 mg/dL (7.0-18.7); Calc. Creatinine Clearance 80 mL/min (70-130); Calcium 9.7 mg/dL (7.8-10.44); Carbon Dioxide 22 mmol/L (22-29); Chloride 102 mmol/L (98-107); Estimated GFR 55; Glucose 144 mg/dL (70-105); Potassium 4.4 mmol/L (3.5-5.1); Sodium 134 mmol/L (136-145)
[2022-05-14] MEDS: HumaLOG 300 UNITS/3 ML VIAL SC PRN ×2 (06:35→12:05)
[2022-05-14] MEDS: Losartan 25 MG TAB PO SCH (08:48)
[2022-05-14] MEDS: Famotidine 20 MG TAB PO SCH (08:49)
[2022-05-14] MEDS: Acetaminophen 325 MG TAB PO PRN ×2 (08:49→14:55)
[2022-05-14] MEDS: FLUoxetine HCl 20 MG CAP PO SCH (08:49)
[2022-05-14] MEDS: Allopurinol 100 MG TAB PO SCH (08:49)
[2022-05-14] MEDS: hydrALAZINE 25 MG TAB PO SCH ×2 (08:49→14:54)
[2022-05-14] MEDS: Carvedilol 25 MG TAB PO SCH (08:49)
[2022-05-14] MEDS: Fluticasone Propionate Nasal Spray 16 gm Bottle NASAL SCH ×2 (10:34→12:08)
[2022-05-14] MEDS: Nicotine 14 MG PATCH TD SCH (11:10)
[2022-05-14 16:11] VITALS: BP 137/92; TEMP 98.3
== END 2022-05-14 17:15 | disposition home or self-care (01) | DRG 64 ==
LOC: ERS 09:14 → ERHOLD 13:21 → NEURO 21:22
PROVIDERS: ADMIT Internal Medicine; ATTEND Internal Medicine
DX: I61.8 Other nontraumatic intracerebral hemorrhage (principal); G93.6 Cerebral edema; I42.9 Cardiomyopathy, unspecified; Z20.822 Contact with and (suspected) exposure to COVID-19; M10.9 Gout, unspecified; I10 Essential (primary) hypertension; E11.9 Type 2 diabetes mellitus without complications; E78.5 Hyperlipidemia, unspecified; F17.210 Nicotine dependence, cigarettes, uncomplicated; F32.A Depression, unspecified; Z79.51 Long term (current) use of inhaled steroids; Z79.84 Long term (current) use of oral hypoglycemic drugs; Z79.899 Other long term (current) drug therapy
CPT/HCPCS: 36415; 36416; 70450; 80048; 80053; 84703; 85025; 85610; 85730; 93005; 96365; 96375; J1200; J1815; J2272; J2765; J3010; Q0162; U0002

== ENCOUNTER 2023-06-06 15:22 | Outpatient (CLI) | payer OTHER | END 2023-06-06 15:23 | disposition home or self-care (01) | LOC: BICULT 15:22 | PROVIDERS: ATTEND Family Medicine | DX: N17.9 Acute kidney failure, unspecified (principal); N39.43 Post-void dribbling | CPT/HCPCS: 76770 ==

== ENCOUNTER 2025-03-19 15:32 | Emergency (ER) | payer OTHER ==
[2025-03-19 16:29] LABS: #Basophils 0.10 10x3/uL (0.0-0.2); #Eosinophils 0.22 10x3/uL (0.0-0.7); #Monocytes 0.55 10x3/uL (0.11-0.59); #Neutrophils 5.74 10x3/uL (1.40-6.50); %Basophils 0.9 % (0.0-1.0); %Eosinophils 2.1 % (0.0-10.0); %Lymphocytes 35.9 % (21.0-51.0); %Monocytes 5.2 % (0.0-10.0); %Neutrophils 53.9 % (42.0-75.0); Hematocrit 36.4 % (36.0-47.0); Hemoglobin 11.7 g/dL (12.0-16.0); Mean Corpuscular Hemoglobin 29.3 pg (27.0-31.0); Mean Corpuscular Volume 91.0 fL (78.0-98.0); Platelet Count 370 10x3/uL (130-400); Red Blood Cell (RBC) Count 4.00 mill/uL (4.20-5.40); White Blood Cell (WBC) Count 10.64 10x3/uL (4.8-10.8)
[2025-03-19 17:01] LABS: ALT (SGPT) 19 U/L (Less than 34); AST (SGOT) 14 U/L (11-34); Albumin 3.7 g/dL (3.1-4.5); Alkaline Phosphatase 72 U/L (40-110); Anion Gap 17 mmol/L (10-20); BUN (Urea Nitrogen) 22 mg/dL (9.8-20.1); Bilirubin, Total 0.1 mg/dL (0.3-1.2); Calc. Creatinine Clearance 0 mL/min (70-130); Calcium 9.2 mg/dL (7.8-10.44); Carbon Dioxide 22 mmol/L (22-29); Chloride 109 mmol/L (98-107); Globulin 3.2 g/dL (2.4-3.5); Glucose 229 mg/dL (70-105); Potassium 3.7 mmol/L (3.5-5.1); Sodium 144 mmol/L (136-145)
[2025-03-19] MEDS ORDERED: Dexamethasone 10 MG/ML VIAL ONE (17:57)
== END 2025-03-19 18:35 | disposition home or self-care (01) ==
LOC: ERS 15:32
DX: R05.9 Cough, unspecified (principal); I10 Essential (primary) hypertension; M10.9 Gout, unspecified; I42.9 Cardiomyopathy, unspecified; F17.210 Nicotine dependence, cigarettes, uncomplicated
CPT/HCPCS: 71045; 80053; 83880; 84484; 85025; 93005; 96372; J1100